=== PATIENT | female | born 1970 | race Caucasian/White ===

== ENCOUNTER 2016-02-18 15:57 | Emergency (ER) | payer OTHER ==
[~2016-02-18 15:57] MED LIST: /AUGM875TA; /LAMO10TA PO; /LAMO15TA PO; /QUET10TA PO; ABIL15TA PO; ABIL5TAB PO; ADDE5TAB5 PO; AMBI10TA PO; AMOX125C; DEPA500T; FLUO20CA8 PO; HYDR25TA6; KLON0.5T PO; KLON1TAB PO; LAMI1TAB7 PO; LAMI1TAB8 PO; LATU40TA PO; LISI10TA4 PO; LISI5TAB PO; METO50TA2 PO; NORV5TAB; PROZ20CA; PROZ20CA11 PO; PROZ40CA PO; QUET50TA2 PO; SEROQUEL PO; ZOLO25TA PO; cleocin TOP
[2016-02-18] MEDS ORDERED: predniSONE 20 MG TAB As Ordered ONE (16:54)
[2016-02-18] MEDS ORDERED: KETOROLAC 30 MG/ML VIAL (J1885) As Ordered ONE (16:54)
[2016-02-18] MEDS ORDERED: ACETAMINOPHEN 325 MG TAB As Ordered ONE (17:52)
--- NOTE | 2016-02-18 18:11 | EDDOCDS ---
Nurse's Notes [facility] Name: Shabnam Tinoco Age: 45 yrs Sex: Female : 1970 Arrival Date: 02/18/2016 Time: 15:57 Bed TR1 Private MD: Angela Theodore S Diagnosis: Cervicalgia-Acute;Low back pain-Acute Presentation: 02/17 15:59 Presenting complaint: Patient states: pt c/o left sided neck pain, headache, and lower ead back pain. reports hx of similar pain. also reporting recently helped a friend move heavy boxes and feels this triggered this episode. Risk Factors No acute neurological deficit is noted. Adult Sepsis Screening: The patient does not have new or worsening altered mentation. Patient's respiratory rate is less than 22. Systolic blood pressure is greater than 100. Patient has a qSOFA score of 0- Negative Sepsis Screen. Suicide/Homicide risk assessment- the patient denies having any suicidal and/or homicidal ideations and does not present with any other emotional, behavioral or mental health complaints. Status: Patient is not a guest services lead or dependent. Transition of care: patient was not received from another setting of care. 15:59 Acuity: LIZ Level 4 ead 15:59 Method Of Arrival: Walkin/Carried/Asstd ead Triage Assessment: 16:04 General: Appears in no apparent distress, Behavior is cooperative. Pain: Location: back ead of neck, back and scalp Pain currently is 9 out of 10 on a pain scale. HIV screening NA for this visit Offered previously. Neurological: Level of Consciousness is awake, alert, Oriented to person, place, time. Respiratory: Airway is patent Respiratory effort is even, unlabored. Musculoskeletal: Reports pain in back of head, back of neck and back. 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 Prozac 30mg Oral tab 1 cap once daily 2. lithium carbonate 450 mg oral TbER 2 times per day 3. Klonopin 0.5 mg Oral tab 1 tab 3 times per day for Panic Disorder 4. lisinopril-hydrochlorothiazide 20-12.5 mg oral tab 1 tab twice daily 5. trazodone 50 mg Oral tab 1 tab daily (Last dose: 02/18/2016) - PMHx: Anxiety; Depression; Bipolar disorder; Hypertension; - PSHx: Tubal ligation; - Social history: Smoking status: Patient states former smoker of tobacco. No barriers to communication noted, The patient speaks fluent Sinhala, Speaks appropriately for age. - Family history: Not pertinent. - : The pt / caregiver states he / she is not on anticoagulants. Home medication list is obtained from. - Exposure Risk Screening:: None identified. Screenin:59 Screening information is obtained from the patient. Fall risk: No risks identified. ttb Assistance ADL's: requires no assistance with activities of daily living. Abuse/DV Screen: The patient / caregiver reports he/she is: not in a situation that causes fear, pain or injury. Nutritional screening: No deficits noted. Advance Directives: Currently, there is no health care proxy. home support is adequate. Assessment: 16:59 General: Appears in no apparent distress, uncomfortable, well nourished, well groomed, ttb Behavior is appropriate for age, cooperative, pleasant. Pain: Location: neck and upper back. Neurological: Level of Consciousness is awake, alert, Oriented to person, place, time, Moves all extremities. Speech is normal, Facial symmetry appears normal. Neurological: Denies numbness. Cardiovascular: Chest pain is denied. Respiratory: No deficits noted. Airway is patent Denies cough, shortness of breath. GI: Denies nausea, vomiting, pain. Derm: Skin is normal. Musculoskeletal: Range of motion limited in neck d/t pain and stiffness. 17:57 Reassessment: Patient appears in no apparent distress at this time. pt states improved ttb pain after meds -- although now has headache. Meds given per orders. Pt requests medicaid cab. Secured per request.. Respiratory: No deficits noted. Airway is patent. Vital Signs: 15:58 BP 128 / 80; Pulse 80; Resp 18 S; Temp 98.5(O); Pulse Ox 100% on R/A; Weight 99.79 kg dd6 (R); Height 5 ft. 5 in. (165.10 cm) (R); 17:52 BP 125 / 85 RA Sitting (auto/lg); Pulse 70; Resp 18; Temp 96.5(O); Pulse Ox 98% on R/A; rs6 Pain 6/10; 15:58 Body Mass Index 36.61 (99.79 kg, 165.10 cm) dd6 Vitals: 15:58 Log In Time: February 18, 2016 at 15:56. dd6 ED Course: 15:58 Patient visited by Guicho Nina PCA. dd6 15:58 Angela Theodore is Private Physician. dd6 15:58 Patient moved to Waiting dd6 15:59 Patient moved to Pre RCE dd6 16:01 Triage Initiated ead 16:17 Patient moved to Triage 3 ead 16:38 Roseanna Valdes PA-C is PHCP. ef1 16:38 Audelia Leger MD is Attending Physician. ef1 16:38 Patient visited by Roseanna Valdes PA-C. ef1 16:53 Patient moved to PR2 / 26 rs6 16:59 The patient / caregiver is instructed regarding the plan of care and ED course. Patient ttb has correct armband on for positive identification. 17:13 Patient visited by Roseanna Valdes PA-C. ef1 17:25 [facility] [place] Payment Agreement was scanned into [employer] and attached to record. jpb 17:42 Patient visited by Roseanna Valdes PA-C. ef1 17:43 Angela Theodore is Referral Physician. ef1 17:[facility] ef1 17:52 Patient visited by Rebecca Ayala PCA. rs6 17:57 No IV's were initiated during this patient's visit. No procedures done that require ttb assistance. 18:03 Patient moved to TR1 mlb1 Administered Medications: 16:59 Drug: predniSONE 60 mg [prednisone 20 mg tablet (3 tabs)] Route: PO; ttb 16:59 Drug: ketorolac 60 mg [ketorolac 30 mg/mL (1 mL) injection solution (2 mL)] Route: IM; ttb Site: left gluteus; 17:58 Follow up: Response: No Adverse Reaction; Pain is decreased ttb 17:57 Drug: Acetaminophen 975 mg [acetaminophen 325 mg tablet (3 tabs)] Route: PO; ttb Order Results: There are currently no results for this order. Outcome: 17:43 Discharge ordered by Provider. ef1 17:57 Discharge Assessment: Patient awake, alert and oriented x 3. No cognitive and/or ttb functional deficits noted. Patient verbalized understanding of disposition instructions. Patient awake and alert. patient administered narcotics - no. The following High Risk Discharge criteria are identified: None. Discharged to home ambulatory. Condition: good Condition: stable Condition: improved. Discharge instructions given to patient, Instructed on discharge instructions, follow up and referral plans. medication usage, no driving heavy equipment, no drinking with medication, Demonstrated understanding of instructions, medications, no d/d with meds, ice/heat for relief Pt was receptive of discharge instructions/ teaching. Prescriptions given X 2. No special radiology studies were completed. Property :Personal belongings accompany Pt. 18:10 Patient left the ED. ttb Signatures: Mario Edmonds RN RN mlb1 Guicho Nina, FREIGHT ELEVATOR ERECTOR FREIGHT ELEVATOR ERECTOR dd6 Roseanna Valdes, PAFreemanC PA-C ef1 Abbe Whiting Teresa, RN RN ttb Dunaway, Emily, RN RN ead Schmitt, Rebecca, FREIGHT ELEVATOR ERECTOR FREIGHT ELEVATOR ERECTOR rs6 PAULA
--- NOTE | 2016-02-18 18:11 | EDDOCDS ---
Physician Documentation [facility] Name: Shabnam Tinoco Age: 45 yrs Sex: Female : 1970 Arrival Date: 02/18/2016 Time: 15:57 Bed TR1 Private MD: Angela Theodore S Disposition: 02/18/16 17:43 Discharged to Home/Self Care. Impression: Cervicalgia - Acute, Low back pain - Acute. - Condition is Stable. - Discharge Instructions: Back Pain, Adult, [id number], Soft Tissue Injury of the Neck, [id number]. - Prescriptions for Mobic 7.5 mg Oral Tablet - take 1 tablet by ORAL route once daily take with food; 20 tablet. Prednisone 20 mg Oral Tablet - take 3 tablet by ORAL route once daily for 5 days; 15 tablet. - Medication Reconciliation, Local Pharmacy Hours form. - Follow up: Angela Theodore; When: 1 - 2 days; Reason: Recheck today's complaints, Continuance of care. Follow up: Emergency Department; Reason: Worsening of conditions. Follow up: [facility]; When: Call to arrange an appointment; Reason: Further diagnostic work-up, Recheck today's complaints, Continuance of care. - Problem is new. - Symptoms have improved. Historical: - Allergies: no known allergies; - Home Meds: 1. Prozac 30mg Oral tab 1 cap once daily 2. lithium carbonate 450 mg oral TbER 2 times per day 3. Klonopin 0.5 mg Oral tab 1 tab 3 times per day for Panic Disorder 4. lisinopril-hydrochlorothiazide 20-12.5 mg oral tab 1 tab twice daily 5. trazodone 50 mg Oral tab 1 tab daily (Last dose: 02/18/2016) - PMHx: Anxiety; Depression; Bipolar disorder; Hypertension; - PSHx: Tubal ligation; - Social history: Smoking status: Patient states former smoker of tobacco. No barriers to communication noted, The patient speaks fluent Uzbek, Speaks appropriately for age. - Family history: Not pertinent. - : The pt / caregiver states he / she is not on anticoagulants. Home medication list is obtained from. - Exposure Risk Screening:: None identified. 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 5 in. (165.10 cm) (R); 17:52 BP 125 / 85 RA Sitting (auto/lg); Pulse 70; Resp 18; Temp 96.5(O); Pulse Ox 98% on R/A; rs6 Pain 6/10; 15:58 Body Mass Index 36.61 (99.79 kg, 165.10 cm) dd6 MDM: 16:52 predniSONE 60 mg PO once; administer with food or milk ordered. ef1 16:52 ketorolac 60 mg IM once ordered. ef1 17:25 [facility] Payment Agreement was scanned into [employer] and attached to record. jpb 17:26 Financial registration complete. jpb 17:50 Acetaminophen Tablet 975 mg PO once ordered. ef1 Administered Medications: 16:59 Drug: predniSONE 60 mg [prednisone 20 mg tablet (3 tabs)] Route: PO; ttb 16:59 Drug: ketorolac 60 mg [ketorolac 30 mg/mL (1 mL) injection solution (2 mL)] Route: IM; ttb Site: left gluteus; 17:58 Follow up: Response: No Adverse Reaction; Pain is decreased ttb 17:57 Drug: Acetaminophen 975 mg [acetaminophen 325 mg tablet (3 tabs)] Route: PO; ttb Signatures: Roseanna Valdes PA-C PA-C ef1 Abbe Whiting jpLiliana Haji RN RN ttb Hillary Hardwick RN RN ead The chart was reviewed and I authenticate all verbal orders and agree with the evaluation and treatment provided.Attachments: 17:25 [facility] Payment Agreement jpb MTDD
--- NOTE | 2016-02-20 19:11 | EDDOCDS ---
Physician Documentation [facility] Name: Shabnam Tinoco Age: 45 yrs Sex: Female : 1970 Arrival Date: 02/18/2016 Time: 15:57 Bed TR1 Private MD: Angela Theodore S Disposition: 02/18/16 17:43 Discharged to Home/Self Care. Impression: Cervicalgia - Acute, Low back pain - Acute. - Condition is Stable. - Discharge Instructions: Back Pain, Adult, Etmh-ay-Grid, Soft Tissue Injury of the Neck, Kwtl-bu-Uscd. - Prescriptions for Mobic 7.5 mg Oral Tablet - take 1 tablet by ORAL route once daily take with food; 20 tablet. Prednisone 20 mg Oral Tablet - take 3 tablet by ORAL route once daily for 5 days; 15 tablet. - Medication Reconciliation, Local Pharmacy Hours form. - Follow up: Angela Theodore; When: 1 - 2 days; Reason: Recheck today's complaints, Continuance of care. Follow up: Emergency Department; Reason: Worsening of conditions. Follow up: [facility]; When: Call to arrange an appointment; Reason: Further diagnostic work-up, Recheck today's complaints, Continuance of care. - Problem is new. - Symptoms have improved. Historical: - Allergies: no known allergies; - Home Meds: 1. Prozac 30mg Oral tab 1 cap once daily 2. lithium carbonate 450 mg oral TbER 2 times per day 3. Klonopin 0.5 mg Oral tab 1 tab 3 times per day for Panic Disorder 4. lisinopril-hydrochlorothiazide 20-12.5 mg oral tab 1 tab twice daily 5. trazodone 50 mg Oral tab 1 tab daily (Last dose: 02/18/2016) - PMHx: Anxiety; Depression; Bipolar disorder; Hypertension; - PSHx: Tubal ligation; - Social history: Smoking status: Patient states former smoker of tobacco. No barriers to communication noted, The patient speaks fluent Malay, Speaks appropriately for age. - Family history: Not pertinent. - : The pt / caregiver states he / she is not on anticoagulants. Home medication list is obtained from. - Exposure Risk Screening:: None identified. 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 5 in. (165.10 cm) (R); 17:52 BP 125 / 85 RA Sitting (auto/lg); Pulse 70; Resp 18; Temp 96.5(O); Pulse Ox 98% on R/A; rs6 Pain 6/10; 15:58 Body Mass Index 36.61 (99.79 kg, 165.10 cm) dd6 MDM: 16:52 predniSONE 60 mg PO once; administer with food or milk ordered. ef1 16:52 ketorolac 60 mg IM once ordered. ef1 17:25 [facility] Payment Agreement was scanned into [employer] and attached to record. jpb 17:26 Financial registration complete. jpb 17:50 Acetaminophen Tablet 975 mg PO once ordered. ef1 02/19 08:49 T-Sheet-- Draft Copy was scanned into [employer] and attached to record. gb Administered Medications: 02/17 16:59 Drug: predniSONE 60 mg [prednisone 20 mg tablet (3 tabs)] Route: PO; ttb 16:59 Drug: ketorolac 60 mg [ketorolac 30 mg/mL (1 mL) injection solution (2 mL)] Route: IM; ttb Site: left gluteus; 17:58 Follow up: Response: No Adverse Reaction; Pain is decreased ttb 17:57 Drug: Acetaminophen 975 mg [acetaminophen 325 mg tablet (3 tabs)] Route: PO; ttb Signatures: Rosa Latham, Roseanna Wooten PA-C PA-C ef1 Abbe Whiting jpLiliana Haji RN RN ttb Hillary Hardwick RN RN eagabrielle The chart was reviewed and I authenticate all verbal orders and agree with the evaluation and treatment provided.Attachments: 17:25 [facility] Payment Agreement [facility] 02/19 08:49 T-Sheet-- Draft Copy gb Chart Complete MTDD
--- NOTE | 2016-02-20 19:11 | EDDOCDS ---
Nurse's Notes [facility] Name: Shabnam Tinoco Age: 45 yrs Sex: Female : 1970 Arrival Date: 02/18/2016 Time: 15:57 Bed TR1 Private MD: Angela Theodore S Diagnosis: Cervicalgia-Acute;Low back pain-Acute Presentation: 02/17 15:59 Presenting complaint: Patient states: pt c/o left sided neck pain, headache, and lower ead back pain. reports hx of similar pain. also reporting recently helped a friend move heavy boxes and feels this triggered this episode. Risk Factors No acute neurological deficit is noted. Adult Sepsis Screening: The patient does not have new or worsening altered mentation. Patient's respiratory rate is less than 22. Systolic blood pressure is greater than 100. Patient has a qSOFA score of 0- Negative Sepsis Screen. Suicide/Homicide risk assessment- the patient denies having any suicidal and/or homicidal ideations and does not present with any other emotional, behavioral or mental health complaints. Status: Patient is not a service specialist or dependent. Transition of care: patient was not received from another setting of care. 15:59 Acuity: LIZ Level 4 ead 15:59 Method Of Arrival: Walkin/Carried/Asstd ead Triage Assessment: 16:04 General: Appears in no apparent distress, Behavior is cooperative. Pain: Location: back ead of neck, back and scalp Pain currently is 9 out of 10 on a pain scale. HIV screening NA for this visit Offered previously. Neurological: Level of Consciousness is awake, alert, Oriented to person, place, time. Respiratory: Airway is patent Respiratory effort is even, unlabored. Musculoskeletal: Reports pain in back of head, back of neck and back. 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 Prozac 30mg Oral tab 1 cap once daily 2. lithium carbonate 450 mg oral TbER 2 times per day 3. Klonopin 0.5 mg Oral tab 1 tab 3 times per day for Panic Disorder 4. lisinopril-hydrochlorothiazide 20-12.5 mg oral tab 1 tab twice daily 5. trazodone 50 mg Oral tab 1 tab daily (Last dose: 02/18/2016) - PMHx: Anxiety; Depression; Bipolar disorder; Hypertension; - PSHx: Tubal ligation; - Social history: Smoking status: Patient states former smoker of tobacco. No barriers to communication noted, The patient speaks fluent Welsh, Speaks appropriately for age. - Family history: Not pertinent. - : The pt / caregiver states he / she is not on anticoagulants. Home medication list is obtained from. - Exposure Risk Screening:: None identified. Screenin:59 Screening information is obtained from the patient. Fall risk: No risks identified. ttb Assistance ADL's: requires no assistance with activities of daily living. Abuse/DV Screen: The patient / caregiver reports he/she is: not in a situation that causes fear, pain or injury. Nutritional screening: No deficits noted. Advance Directives: Currently, there is no health care proxy. home support is adequate. Assessment: 16:59 General: Appears in no apparent distress, uncomfortable, well nourished, well groomed, ttb Behavior is appropriate for age, cooperative, pleasant. Pain: Location: neck and upper back. Neurological: Level of Consciousness is awake, alert, Oriented to person, place, time, Moves all extremities. Speech is normal, Facial symmetry appears normal. Neurological: Denies numbness. Cardiovascular: Chest pain is denied. Respiratory: No deficits noted. Airway is patent Denies cough, shortness of breath. GI: Denies nausea, vomiting, pain. Derm: Skin is normal. Musculoskeletal: Range of motion limited in neck d/t pain and stiffness. 17:57 Reassessment: Patient appears in no apparent distress at this time. pt states improved ttb pain after meds -- although now has headache. Meds given per orders. Pt requests medicaid cab. Secured per request.. Respiratory: No deficits noted. Airway is patent. Vital Signs: 15:58 BP 128 / 80; Pulse 80; Resp 18 S; Temp 98.5(O); Pulse Ox 100% on R/A; Weight 99.79 kg dd6 (R); Height 5 ft. 5 in. (165.10 cm) (R); 17:52 BP 125 / 85 RA Sitting (auto/lg); Pulse 70; Resp 18; Temp 96.5(O); Pulse Ox 98% on R/A; rs6 Pain 6/10; 15:58 Body Mass Index 36.61 (99.79 kg, 165.10 cm) dd6 Vitals: 15:58 Log In Time: February 18, 2016 at 15:56. dd6 ED Course: 15:58 Patient visited by Guicho Nina PCA. dd6 15:58 Angela Theodore is Private Physician. dd6 15:58 Patient moved to Waiting dd6 15:59 Patient moved to Pre RCE dd6 16:01 Triage Initiated ead 16:17 Patient moved to Triage 3 ead 16:38 Roseanna Valdes PA-C is PHCP. ef1 16:38 Audelia Leger MD is Attending Physician. ef1 16:38 Patient visited by Roseanna Valdes PA-C. ef1 16:53 Patient moved to PR2 / rs6 16:59 The patient / caregiver is instructed regarding the plan of care and ED course. Patient ttb has correct armband on for positive identification. 17:13 Patient visited by Roseanna Valdes PA-C. ef1 17:25 [facility] Agreement was scanned into [employer] and attached to record. jpb 17:42 Patient visited by Roseanna Valdes PA-C. ef1 17:43 Angela Theodore is Referral Physician. ef1 17:[facility]. ef1 17:52 Patient visited by Rebecca Ayala PCA. rs6 17:57 No IV's were initiated during this patient's visit. No procedures done that require ttb assistance. 18:03 Patient moved to [place] [id number] 02/19 08:49 T-Sheet-- Draft Copy was scanned into [employer] and attached to record. gb Administered Medications: 02/17 16:59 Drug: predniSONE 60 mg [prednisone 20 mg tablet (3 tabs)] Route: PO; ttb 16:59 Drug: ketorolac 60 mg [ketorolac 30 mg/mL (1 mL) injection solution (2 mL)] Route: IM; ttb Site: left gluteus; 17:58 Follow up: Response: No Adverse Reaction; Pain is decreased ttb 17:57 Drug: Acetaminophen 975 mg [acetaminophen 325 mg tablet (3 tabs)] Route: PO; ttb Order Results: There are currently no results for this order. Outcome: 17:43 Discharge ordered by Provider. ef1 17:57 Discharge Assessment: Patient awake, alert and oriented x 3. No cognitive and/or ttb functional deficits noted. Patient verbalized understanding of disposition instructions. Patient awake and alert. patient administered narcotics - no. The following High Risk Discharge criteria are identified: None. Discharged to home ambulatory. Condition: good Condition: stable Condition: improved. Discharge instructions given to patient, Instructed on discharge instructions, follow up and referral plans. medication usage, no driving heavy equipment, no drinking with medication, Demonstrated understanding of instructions, medications, no d/d with meds, ice/heat for relief Pt was receptive of discharge instructions/ teaching. Prescriptions given X 2. No special radiology studies were completed. Property :Personal belongings accompany Pt. 18:10 Patient left the ED. ttb Signatures: Rosa Latham, Reg Reg gb Mario Edmonds RN RN mlb1 Guicho Nina, NURSE RN BSN NURSE RN BSN dd6 Roseanna Valdes, PACruz PA-C ef1 Abbe Whiting Teresa RN RN ttb Hillary HardwickRN RN Rebecca Shannon, NURSE RN BSN NURSE RN BSN rs6 Chart Complete [facility]
--- NOTE | 2016-02-20 19:11 | EDDOCDS ---
Physician Documentation [facility] Name: Shabnam Tinoco Age: 45 yrs Sex: Female : 1970 Arrival Date: 02/18/2016 Time: 15:57 Bed TR1 Private MD: Angela Theodore S Disposition: 02/18/16 17:43 Discharged to Home/Self Care. Impression: Cervicalgia - Acute, Low back pain - Acute. - Condition is Stable. - Discharge Instructions: Back Pain, Adult, [id number], Soft Tissue Injury of the Neck, [id number]. - Prescriptions for Mobic 7.5 mg Oral Tablet - take 1 tablet by ORAL route once daily take with food; 20 tablet. Prednisone 20 mg Oral Tablet - take 3 tablet by ORAL route once daily for 5 days; 15 tablet. - Medication Reconciliation, Local Pharmacy Hours form. - Follow up: Angela Theodore; When: 1 - 2 days; Reason: Recheck today's complaints, Continuance of care. Follow up: Emergency Department; Reason: Worsening of conditions. Follow up: [facility]; When: Call to arrange an appointment; Reason: Further diagnostic work-up, Recheck today's complaints, Continuance of care. - Problem is new. - Symptoms have improved. Historical: - Allergies: no known allergies; - Home Meds: 1. Prozac 30mg Oral tab 1 cap once daily 2. lithium carbonate 450 mg oral TbER 2 times per day 3. Klonopin 0.5 mg Oral tab 1 tab 3 times per day for Panic Disorder 4. lisinopril-hydrochlorothiazide 20-12.5 mg oral tab 1 tab twice daily 5. trazodone 50 mg Oral tab 1 tab daily (Last dose: 02/18/2016) - PMHx: Anxiety; Depression; Bipolar disorder; Hypertension; - PSHx: Tubal ligation; - Social history: Smoking status: Patient states former smoker of tobacco. No barriers to communication noted, The patient speaks fluent Thai, Speaks appropriately for age. - Family history: Not pertinent. - : The pt / caregiver states he / she is not on anticoagulants. Home medication list is obtained from. - Exposure Risk Screening:: None identified. 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 5 in. (165.10 cm) (R); 17:52 BP 125 / 85 RA Sitting (auto/lg); Pulse 70; Resp 18; Temp 96.5(O); Pulse Ox 98% on R/A; rs6 Pain 6/10; 15:58 Body Mass Index 36.61 (99.79 kg, 165.10 cm) dd6 MDM: 16:52 predniSONE 60 mg PO once; administer with food or milk ordered. ef1 16:52 ketorolac 60 mg IM once ordered. ef1 17:25 [facility] Payment Agreement was scanned into [employer] and attached to record. jpb 17:26 Financial registration complete. jpb 17:50 Acetaminophen Tablet 975 mg PO once ordered. ef1 02/19 08:49 T-Sheet-- Draft Copy was scanned into [employer] and attached to record. gb Administered Medications: 02/17 16:59 Drug: predniSONE 60 mg [prednisone 20 mg tablet (3 tabs)] Route: PO; ttb 16:59 Drug: ketorolac 60 mg [ketorolac 30 mg/mL (1 mL) injection solution (2 mL)] Route: IM; ttb Site: left gluteus; 17:58 Follow up: Response: No Adverse Reaction; Pain is decreased ttb 17:57 Drug: Acetaminophen 975 mg [acetaminophen 325 mg tablet (3 tabs)] Route: PO; ttb Signatures: Rosa Latham, Roseanna Wooten PA-C PA-C ef1 Abbe Whiting jpLiliana Haji RN RN ttb Hillary Hardwick RN RN eagabrielle The chart was reviewed and I authenticate all verbal orders and agree with the evaluation and treatment provided.Attachments: 17:25 [facility] Payment Agreement the medical center 02/19 08:49 T-Sheet-- Draft Copy gb Chart Complete MTDD
== END 2016-02-18 18:10 | disposition home or self-care (01) ==
LOC: M ED 15:57
DX: M54.5 Low back pain (principal); M54.2 Cervicalgia; G89.29 Other chronic pain; I10 Essential (primary) hypertension; F31.9 Bipolar disorder, unspecified; F41.9 Anxiety disorder, unspecified; Z87.891 Personal history of nicotine dependence; Z79.899 Other long term (current) drug therapy
CPT/HCPCS: 96372; 99283; J1885

== ENCOUNTER → 2016-03-03 | Outpatient (CLI) | payer OTHER ==
--- NOTE | 2016-03-03 13:30 | REPMRS ---
Patient History The patient states she had a clinical breast exam in 03/02 Patient has history of other cancer at age 18. No known family history of cancer. Digital Woman Screen Mammo: March 03, 2016 - Exam #: [id number] Bilateral CC and MLO view(s) were taken. Technologist: Vickie Lovelace, Technologist Prior study comparison: January 17, 2015, digital woman screen mammo performed at [facility]. FINDINGS: There are scattered fibroglandular densities. There has been no change in the appearance of the mammogram from the prior studies. There is a mild amount of scattered fibroglandular density which is fairly symmetric. There is no interval development of dominant mass, architectural distortion, or clustered microcalcification suggestive of malignancy. ASSESSMENT: BI-RADS/ACR category 1 mammogram. Negative. Recommendation Routine screening mammogram in 1 year (for women over age 40). This mammogram was interpreted with the aid of an FDA-approved computer-aided dectection system. Electronically Signed By: Paolo Dempsey MD 03/03/16 [id number]
== END ==
LOC: M WHC 10:22
PROVIDERS: ATTEND Nurse Practitioner Family
DX: Z12.31 Encounter for screening mammogram for malignant neoplasm of breast (principal)

== ENCOUNTER 2016-06-12 12:33 | Emergency (ER) | payer OTHER ==
[~2016-06-12] VITALS: Ht 165.1 cm; Wt 86.2 kg
[2016-06-12 12:33] VITALS: BP 112/79
[2016-06-12] MEDS ORDERED: AMLO10TA PO (12:42)
[2016-06-12] MEDS ORDERED: LITH300C PO (12:42)
[2016-06-12] MEDS ORDERED: SERO50TA PO (12:42)
[2016-06-12] MEDS ORDERED: PROZ20CA11 PO (12:42)
[2016-06-12] MEDS ORDERED: PENI50TA PO (13:01)
[2016-06-12] MEDS ORDERED: VICO5TAB16 PO (13:04)
[2016-06-12] MEDS: PENICILLIN V POTASSIUM 500 MG TAB PO ONE (13:04)
[2016-06-12] MEDS: PERCOCET 5MG/325MG TAB PO ONE (13:05)
== END 2016-06-12 13:15 | disposition home or self-care (01) ==
LOC: M ED 12:58
DX: K08.9 Disorder of teeth and supporting structures, unspecified (principal); Z88.5 Allergy status to narcotic agent; Z79.899 Other long term (current) drug therapy; R51 Headache; I10 Essential (primary) hypertension; F41.9 Anxiety disorder, unspecified; F32.9 Major depressive disorder, single episode, unspecified

== ENCOUNTER 2016-06-16 09:32 | Emergency (ER) | payer OTHER ==
[~2016-06-16] VITALS: Ht 165.1 cm; Wt 86.2 kg
[~2016-06-16 09:32] MED LIST changes: +AMLO10TA PO; +LITH300C PO; +PENI50TA PO; +SERO50TA PO; +VICO5TAB16 PO
[2016-06-16 09:34] VITALS: BP 135/88
[2016-06-16] MEDS ORDERED: GABA-279 PO (09:42)
[2016-06-16] MEDS ORDERED: BUSP10TA PO (09:42)
[2016-06-16] MEDS ORDERED: BUPIVACAINE HCL 0.5% 10 ML VIAL SC ONE (10:00)
[2016-06-16] MEDS ORDERED: GABA-282 PO (10:03)
[2016-06-16] MEDS ORDERED: INDO25CA PO (10:03)
[2016-06-16] MEDS ORDERED: ROBA500T PO (10:03)
== END 2016-06-16 10:11 | disposition home or self-care (01) ==
LOC: M ED 09:51
DX: M54.2 Cervicalgia (principal); K02.9 Dental caries, unspecified; F17.200 Nicotine dependence, unspecified, uncomplicated; Z79.899 Other long term (current) drug therapy; Z88.5 Allergy status to narcotic agent

== ENCOUNTER → 2016-06-30 | Outpatient (REF) | payer OTHER ==
[~2016-06-30] MED LIST changes: +BUSP10TA PO; +GABA-279 PO; +GABA-282 PO; +INDO25CA PO; +ROBA500T PO
[2016-06-30 18:26] LABS: MEAN CORPUSCULAR HEMOGLOBIN 29.8 pg (27.0-33.0); MEAN CORPUSCULAR HGB CONC 33.1 g/dl (32.0-36.5); MEAN CORPUSCULAR VOLUME 89.9 fl (80.0-96.0); RED CELL DISTRIBUTION WIDTH 13.6 % (11.5-14.5); WHITE BLOOD COUNT 9.4 K/mm3 (4.0-10.0)
[2016-06-30 19:18] LABS: ALBUMIN/GLOBULIN RATIO 1.14 (1.00-1.93); ALKALINE PHOSPHATASE 38 U/L (45-117); ALT/SGPT 40 U/L (12-78); ANION GAP 9 MEQ/L (8-16); AST/SGOT 20 U/L (15-37); BILIRUBIN,TOTAL 0.3 MG/DL (0.2-1.0); BLOOD UREA NITROGEN 15 MG/DL (7-18); CALCIUM LEVEL 8.5 MG/DL (8.5-10.1); CARBON DIOXIDE LEVEL 24 MEQ/L (21-32); CHLORIDE LEVEL 108 MEQ/L (98-107); CHOLESTEROL LEVEL 210 MG/DL (<200); CREATININE FOR GFR 0.85 MG/DL (0.55-1.02); FREE T4 0.89 NG/DL (0.76-1.46); GLOMERULAR FILTRATION RATE > 60.0 (>58); GLUCOSE, FASTING 73 MG/DL (70-105); LITHIUM LEVEL 0.33 MEQ/L (0.60-1.20); POTASSIUM SERUM 4.4 MEQ/L (3.5-5.1); SODIUM LEVEL 141 MEQ/L (136-145); TOTAL PROTEIN 7.5 GM/DL (6.4-8.2); TRIGLYCERIDES LEVEL 243 MG/DL (<150)
== END ==
LOC: M SFHCLERA 14:26
PROVIDERS: ATTEND Family Medicine
DX: F31.30 Bipolar disorder, current episode depressed, mild or moderate severity, unspecified (principal)

== ENCOUNTER → 2016-06-30 | Outpatient (CLI) | payer OTHER ==
--- NOTE | 2016-06-30 15:26 | REP ---
Clinical: Pain. Technique: AP, lateral, flexion/extension, swimmer's, open-mouth, and bilateral oblique views. Comparison: 11/13/2014. Findings: Advanced multilevel degenerative changes include osteophytosis, endplate sclerosis/heterogeneity and disc space narrowing. Findings are most significant at the C5-6 and C4-5 levels. No acute fracture dislocation. Alignment and lordosis maintained. Open mouth view demonstrates normal C1-C2 articulation and odontoid process. Oblique views demonstrate patent neural foramen. Impression: Moderate to advanced multilevel degenerative changes most notably involving C5-6 and C4-5. No acute fracture or subluxation. Signed by Henrry Rosa MD 06/30/2016 03:18 P
== END ==
LOC: M LRY 14:32
PROVIDERS: ATTEND Family Medicine
DX: M50.90 Cervical disc disorder, unspecified, unspecified cervical region (principal)

== ENCOUNTER 2016-07-17 05:53 | Inpatient (IN) | payer OTHER ==
[~2016-07-17] VITALS: Ht 165.1 cm; Wt 99.8 kg
[2016-07-17] MEDS ORDERED: diphenhydrAMINE INJ 50MG/ML VIAL (J1200) IV STA (06:22)
[2016-07-17] MEDS ORDERED: FLUID PLACE HOLDER IV ONE ×2 (06:30)
[2016-07-17] MEDS ORDERED: MORPHINE 4 MG/ML 1ML SYRINGE IV ONE ×3 (06:30→09:30)
[2016-07-17] MEDS ORDERED: NAFCILLIN SOD IV ONE ×2 (06:30)
[2016-07-17 06:45] LABS: BASO % 0.5 % (0.0-1.0); EOS # 0.1 K/mm3 (0.0-0.50); LARGE UNSTAINED CELL # 0.1 K/mm3 (0.0-0.4); LARGE UNSTAINED CELL % 0.9 % (0.0-4.0); LYMPH # 2.2 K/mm3 (1.5-4.5); LYMPH % 17.3 % (24.0-44.0); MEAN CORPUSCULAR HEMOGLOBIN 29.4 pg (27.0-33.0); MEAN CORPUSCULAR HGB CONC 33.6 g/dl (32.0-36.5); MEAN CORPUSCULAR VOLUME 87.6 fl (80.0-96.0); MONO # 0.8 K/mm3 (0.0-0.8); NEUTROPHILS # 8.7 K/mm3 (1.8-7.7); NEUTROPHILS % 73.3 % (36.0-66.0); PLATELET COUNT, AUTOMATED 299 k/mm3 (150-450); RED CELL DISTRIBUTION WIDTH 13.5 % (11.5-14.5); WHITE BLOOD COUNT 11.8 K/mm3 (4.0-10.0)
[2016-07-17] MEDS ORDERED: NAFCILLIN SOD 2 GM in D5W MINI-BAG PLUS 100 ML IV ONE (06:45)
[2016-07-17 07:30] LABS: ANION GAP 6 MEQ/L (8-16); BLOOD UREA NITROGEN 9 MG/DL (7-18); CALCIUM LEVEL 8.2 MG/DL (8.5-10.1); CARBON DIOXIDE LEVEL 25 MEQ/L (21-32); CHLORIDE LEVEL 110 MEQ/L (98-107); CREATININE FOR GFR 0.66 MG/DL (0.55-1.02); GLOMERULAR FILTRATION RATE > 60.0 (>58); GLUCOSE, FASTING 106 MG/DL (70-105); POTASSIUM SERUM 4.4 MEQ/L (3.5-5.1); SODIUM LEVEL 141 MEQ/L (136-145)
--- NOTE | 2016-07-17 07:30 | REPUSA ---
HISTORY: Orbital cellulitis. TECHNIQUE: Computerized tomography of the orbits without the use of intravenous contrast material obt ained in axial and coronal planes. COMMENTS: Significant right preseptal soft tissue edema and swelling. There is no fracture or dislocation. The sinuses are patent. The globes of the eyes disclose bilaterally symmetrical size and shape and normal appearance of the v arious layers. The intraocular lenses and the vitreous are unremarkable. The orbits show bilaterally symmetrical shape. The orbital fat and the intraorbital portions of the optic nerves are bilaterally symmetric and normal in size, shape and course. The extraocular muscles are unremarkable. The intracranial visual pathways show no abnormality. The optic chiasm and visualized portions of the optic tracts are normal. IMPRESSION: Right preseptal soft tissue edema and swelling suggestive of cellulitis. No drainable abscess formati on. No post septal extension. Unremarkable contrast orbital fat. No fracture. Thank you for your kind referral of this patient.
[2016-07-17] MEDS ORDERED: ONDANSETRON 4MG/2ML VIAL (J2405) IV PRN (08:00)
[2016-07-17] MEDS ORDERED: BISACODYL 5 MG TAB PO PRN (08:00)
[2016-07-17] MEDS ORDERED: KETOROLAC 30 MG/ML VIAL (J1885) IV PRN (08:15)
[2016-07-17] MEDS ORDERED: LISI20TA3 PO (08:41)
[2016-07-17] MEDS ORDERED: LORA10TA2 PO (08:41)
[2016-07-17] MEDS ORDERED: ADVI200T PO (08:42)
[2016-07-17] MEDS ORDERED: amLODIPine 5 MG TAB PO SCH (09:00)
[2016-07-17] MEDS ORDERED: LISINOPRIL 10 MG TAB PO SCH (09:00)
[2016-07-17] MEDS ORDERED: FLUoxetine 10 MG CAP PO SCH (09:00)
[2016-07-17] MEDS: NS 1,000 ML IV SCH ×2 (09:12→17:59)
[2016-07-17] MEDS ORDERED: NALOXONE INJ 0.4 MG/1 ML VIAL (J2310) IV PRN (09:30)
[2016-07-17] MEDS ORDERED: VANCOMYCIN HCL 1,000 MG, VIAL MATE ADAPTER 1 EACH in D5W 250 ML IV ONE (10:00)
[2016-07-17] MEDS: cefTRIAXone SOD 2 GM in D5W MINI-BAG PLUS 50 ML IV SCH (11:00)
[2016-07-17] MEDS: LISINOPRIL 20 MG TAB PO SCH (11:08)
[2016-07-17] MEDS: hydroCHLOROthiazide 25 MG TAB PO SCH (11:08)
[2016-07-17] MEDS: busPIRone 10 MG TAB PO SCH ×3 (11:09→20:21)
[2016-07-17] MEDS: GABAPENTIN 300 MG CAP PO SCH ×3 (11:09→20:21)
[2016-07-17] MEDS: FLUoxetine 20 MG CAP PO SCH (11:09)
[2016-07-17] MEDS: LITHIUM CARBONATE 300 MG CAP PO SCH ×2 (11:09→20:22)
[2016-07-17] MEDS: ENOXAPARIN 40 MG/0.4 ML SYRINGE (J1650) SC SCH (11:10)
[2016-07-17] MEDS: KETOROLAC 30 MG/ML VIAL (J1885) IV SCH ×3 (11:11→20:21)
[2016-07-17 12:00] VITALS: BP 121/69
[2016-07-17] MEDS ORDERED: AMPICILLIN SOD/SULBACTAM SOD 3 GM in D5W MINI-BAG PLUS 100 ML IV SCH (12:00)
--- NOTE | 2016-07-17 13:36 | PHACANCOPD ---
PHARMACY VANCOMYCIN DOSING Pt Demographics Demographics Patient Age:45 , Weight:99.790 , Gender: female Adjusted Body Weight Date: 07/17/16, Adjusted Body Weight: [74] Kg Events Past 24 Hours Events Past 24 Hours: NO: Dialysis, Diuretic Therapy, Change in CrCl, Fever, Elevation in WBC, Pending Diagnostics, Pending Procedures, Other Vancomycin Vancomycin indication: h/o MRSA, preseptal cellulitis R eye Vancomycin Target Ranges: 10-20 mcg/ml Vancomycin Load Y/N: Yes Load Dose Date Time Vancomycin Load Dose: 1000mg Date: 07/17 Time: 13:00 Vancomycin Dose Date: 07/17/16. Current Vancomycin Dose: [1g IV q8h @16] Intermittent Dosing?: No Labs Labs Item Value Date Time White Blood Count 11.8 K/mm3 H 07/17/16 0636 Creatinine 0.66 MG/DL 07/17/16 0636 Micro Microbiology 07/17/16 Blood Culture, Received Pending Creatinine Clearance Date:07/17/16. Creatinine Clearance: [>100 ml/min]. Assessment and Plan Maintaining Current Dose?: Yes Reason for dose change: No Dose Change Pharmacist Note Pharmacist Note Date: 07/17/16. Pharmacist note: pt has been admitted for preseptal R eye cellulitis s/p pimple/insect bite. Pt does have a positive Hx of MRSA (2013 trunk, ESTEFANÍA = 1) although she has not been on vancomycin here in the past. I have started her on a 1g load (given ~13:00) and started 1g q8h dosing ~3 hours later. She is also on Rocephin. I will continue to monitor and order a trough as necessary. Raimundo Fonseca Pharm.D. Jul 17, 2016 13:36
[2016-07-17 14:00] VITALS: BP 128/61
[2016-07-17] MEDS: VANCOMYCIN HCL 1,000 MG, VIAL MATE ADAPTER 1 EACH in D5W 250 ML IV SCH (15:04)
[2016-07-17] MEDS: ACETAMINOPHEN TAB 650MG DOSE (2X325MG) PO PRN (16:40)
[2016-07-17] MEDS: QUEtiapine FUMARATE 50 MG TAB PO SCH (20:21)
[2016-07-17] MEDS ORDERED: GABAPENTIN 100 MG CAP PO SCH (21:00)
--- NOTE | 2016-07-17 21:20 | HPEPDOC ---
General Date of Admission Jul 17, 2016 at 08:04 Primary Care Physician: MORGAN LILLY MD Attending Physician: FRANSISCO LEVI MD Chief Complaint The patient is a 45-year-old female admitted with a reason for visit of Preseptal Cellulitis Of Right Eye. Source: Patient History of Present Illness PRIMARY CARE PROVIDER: Dr. Morgan Lilly CHIEF COMPLAINT: eye and facial swelling HISTORY OF PRESENT ILLNESS: 45 yo F with a PMH of HTN, anxiety, bipolar disorder, ADHD, and MRSA infection in 2013, is presenting to the [facility] ED for a chief complaint of swelling and redness of the R eye and face which began 2 days ago. This has progressively worsened. States that she first noticed a pimple or a "red dot" resembling an insect bite next to the R side of her eye. She began to pick on it and also used warm compresses on it. States she tried to keep the site clean and used neosporin and a bandaid on it. She also began to squeeze out dime-sized pus that was green/white/brown at times. She had done this multiple times last evening. This morning there was more drainage and she had squeezed out more pus and blood. States it was yesterday that the pain, pressure, warmth, and swelling actually started in her R eye and R cheek/face/neck. This morning, patient states she was unable to open her R eye due to the swelling and this had become worse. Swelling extended down to her R cheek and R neck glands. States the eye is very itchy. Pain was initially 9/10 when she came to the ED, a dose or morphine was given, and the pain is only reduced to a 7.5-8/10. Throbbing in nature. States she can feel pulsing in the eye, feels pressure in the edematous areas, and has formed a headache worse on the R frontal area and pain at the R ear. Moving her face exacerbates the pain as well. Warm compresses help alleviate some pain but not entirely. States she cannot open her jaw all the way. Denies fevers, dizziness, loss of consciousness, pain with eye movements, diplopia, visual loss/disturbance, drainage from the R eye itself, tearing or drainage coming from the R eye itself, vomiting, diarrhea, constipation, abdominal pain, numbness/tingling in extremities, urinary symptoms of dysuria or hematuria, hematochezia, weakness in her extremities. Admits to feeling hot/ cold on and off, some chills, diaphoresis, nausea, numbness around the R eye from being so swollen, pain and swelling in and around the R eye. In the ED, patient was given 4 mg injection of IV morphine sulfate, nafcillin 2000 mg IV once, diphenhydramine 12.5 mg IV, bloodwork was done, and a CT scan of the bilateral orbits without contrast was obtained. Please see results below. 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 No recurrence. SOCIAL HISTORY: Single. Lives at home with kitten. Has 2 children: 13 yo daughter and 23 yo son who lives in [place] Smokes 5-6 cigarettes per day x 3 years Denies heavy drinking. States has not drank in 7 months and has been going to [employer]. Denies heavy drinking in the past. Recreational drug use: smokes marijuana which helps her sleep. No other illicit drug use. Denies sick contacts. Denies recent travel. Denies occupational/other exposures to chemical/toxins, asbestos, silicosis, etc. FAMILY HISTORY: Mother: HTN, borderline diabetes, lymph node problems Father: Does not know. Older Brother: healthy and active. CODE STATUS: Full code REVIEW OF SYSTEMS: All ROS are negative except for those as stated above in HPI. PHYSICAL EXAMINATION: Vitals: T:98.3 BP: 135/87 RR:18 P:74 O2 Saturation: 97% room air General: AAO x 3. Pleasant and cooperative obese female. NAD. Psychiatric: Anxious mood/personality. HEENT: Head: normocephalic, atraumatic. Eyes: PERRL, sclera are nonicteric. EOMI intact bilaterally and no pain with movement of eye muscles. No proptosis. Visual acuity intact bilaterally. No redness in the R eye sclera. No drainage noted in the R eye. No crusting of the R eye eyelashes. Extremely swollen and slightly erythematous R eyelid. A bit warm to touch. There is a light brown crusted lesion next to her R eye--not actively draining. Ears: grossly normal hearing bilaterally. Swelling below R eye ear. +R cheek/facial swelling with induration palpated. Nose: No external lesions, Throat: no pharyngeal erythema or exudates, moist buccal mucosa. Neck: Supple. +R neck glandular swelling and R-sided lymphadenopathy. Respiratory: clear to auscultation bilaterally with no wheezes, rales, or rhonchi. Cardiovascular: regular rate and rhythm, with no murmurs, rubs or gallops. Abdomen: soft, nontender, nondistended, no hepatosplenomegaly appreciated. Bowel sounds present. Extremities: no swelling in either lower extremity bilaterally Neurological: No focal neurologic deficits appreciated. Lymphatics: +swollen lymph glands of R side of neck Integumentary: R eyelid/facial findings. Please see HEENT section. Vascular: +2 radial and dorsalis pedis pulses palpated bilaterally. LABORATORY DATA: Please see below for full labs. Significant for WBC 11.8, % neutrophilia of 73.3, lymphocytes of 17.3, and 7 monocytes, fasting glucose 106, calcium 8.2 MICROBIOLOGY: Blood cx are pending. ELECTROCARDIOGRAM: Not performed. RADIOLOGY: CT Orbit without contrast Bilateral: R preseptal soft tissue edema and swelling suggestive of cellulitis. No drainable abscess formation. No post septal extension. Unremarkable contrast orbital fat. No fracture. ASSESSMENT: This is a 45 yo F who is presenting for R eye preseptal cellulitis, R-sided facial/neck lymph gland swelling, and a R-sided brown crusted over lesion/wound site. . PLAN: Admit to the inpatient service. Preseptal Orbital Cellulitis and R-sided wound sit:e. Will treat with IV antibiotics: vancomycin and rocephin. Will obtain wound culture for gram stain and cx. Will follow up blood cx. Tylenol PRN pain/fever. Zofran for nausea. Pain control and edema: will give IV toradol 30 mg IV q6h with IV fluids. Once swelling and pain improved, will change toradol and IVF to PRN. For itchiness, will give benadryl. Due to past infection of MRSA in 2013, will send for MRSA screening. If MRSA screen is (-), will switch antibiotics to unasyn. HTN: continue lisinopril, amlodipine, HCTZ Bipolar Disorder: continue lithium and seroquel Anxiety: continue Prozac and buspirone. ADHD: continue seroquel (+) MRSA infection in past: place isolation precautions. Continue home medications. DVT ppx: lovenox My preceptor for this patient encounter was Dr. Fransisco Levi, and was physically present in the building during the encounter and was fully available. As needed, all aspects of the patient interview, examination, medical decision making process, and medical care plan development were reviewed and approved by the preceptor. Preceptor is aware and concurs with the plan as stated in the body of this note and will attest to such by his/her cosignature. Home Medications Scheduled (Lisinopril/Hydrochlorothi 20-25 mg) 1 Tab Tab, 1 TAB PO DAILY, (Reported) Amlodipine Besylate (Norvasc) 10 Mg Tab, 10 MG PO DAILY, (Reported) Buspirone HCl (Buspirone HCl) 10 Mg Tab, 10 MG PO TID, (Reported) Fluoxetine HCl (Prozac) 20 Mg Cap, 40 MG PO DAILY, (Reported) Gabapentin (Gabapentin) 300 Mg Cap, 300 MG PO TID [place] Carbonate ([place] Carbonate) 300 Mg Cap, 300 MG PO BID, (Reported) Loratadine (Loratadine) 10 Mg Tab, 10 MG PO DAILY, (Reported) Scheduled PRN Ibuprofen (Advil) 200 Mg Tab, 800 MG PO Q8H PRN for PAIN, (Reported) Quetiapine Fumerate (Seroquel) 50 Mg Tab, 50 MG PO QHS PRN for SLEEP, (Reported) Allergies Coded Allergies: Codeine (Verified Allergy, Mild, itchness, 06/12/16) Vital Signs Vital Signs Date Time Temp Pulse Resp B/P (MAP) Pulse Ox O2 Delivery O2 Flow Rate FiO2 07/17/16 14:00 97.2 77 18 128/61 (83) 96 Room Air Laboratory Data Labs 24H Laboratory Tests 2 07/17/16 06:36: White Blood Count 11.8H, Red Blood Count 4.10, Hemoglobin 12.1, Hematocrit 35.9L , Mean Corpuscular Volume 87.6, Mean Corpuscular Hemoglobin 29.4, Mean Corpuscular Hemoglobin Concent 33.6, Red Cell Distribution Width 13.5, Platelet Count 299, Neutrophils (%) (Auto) 73.3H, Lymphocytes (%) (Auto) 17.3L, Monocytes (%) (Auto) 7.0H, Eosinophils (%) (Auto) 1.0, Basophils (%) (Auto) 0.5 , Neutrophils # (Auto) 8.7H, Lymphocytes # (Auto) 2.2, Monocytes # (Auto) 0.8, Eosinophils # (Auto) 0.1, Basophils # (Auto) 0.0, Large Unclassified Cells % 0.9 , Large Unclassified Cells # 0.1, Anion Gap 6L, Glomerular Filtration Rate > 60.0, Blood Urea Nitrogen 9, Creatinine 0.66, Sodium Level 141, Potassium Level 4.4, Chloride Level 110H, Carbon Dioxide Level 25, Calcium Level 8.2L CBC/BMP Laboratory Tests 07/17/16 06:36 Red Blood Count 4.10, Mean Corpuscular Volume 87.6, Mean Corpuscular Hemoglobin 29.4, Mean Corpuscular Hemoglobin Concent 33.6, Red Cell Distribution Width 13.5 , Neutrophils (%) (Auto) 73.3 H, Lymphocytes (%) (Auto) 17.3 L, Monocytes (%) ( Auto) 7.0 H, Eosinophils (%) (Auto) 1.0, Basophils (%) (Auto) 0.5, Neutrophils # (Auto) 8.7 H, Lymphocytes # (Auto) 2.2, Monocytes # (Auto) 0.8, Eosinophils # (Auto) 0.1, Basophils # (Auto) 0.0, Calcium Level 8.2 L Microbiology Microbiology 07/17/16 Blood Culture, Received Pending 07/17/16 MRSA Screen, Received Pending 07/17/16 Gram Stain, Received Pending 07/17/16 Wound Culture, Received Pending Plan / VTE VTE Prophylaxis Ordered?: Yes (lovenox) RADHA KRISHNAN OGME-1 Jul 17, 2016 21:20
[2016-07-17 22:00] VITALS: BP 140/88
[2016-07-18] MEDS: VANCOMYCIN HCL 1,000 MG, VIAL MATE ADAPTER 1 EACH in D5W 250 ML IV SCH ×4 (00:12→19:24)
[2016-07-18] MEDS: ACETAMINOPHEN TAB 650MG DOSE (2X325MG) PO PRN ×2 (00:12→05:52)
[2016-07-18] MEDS: KETOROLAC 30 MG/ML VIAL (J1885) IV SCH ×4 (04:04→22:52)
[2016-07-18 06:00] VITALS: BP_SYST 158; BP_DIAS 84; BP_DIAS 88
[2016-07-18 06:05] LABS: MEAN CORPUSCULAR HGB CONC 33.9 g/dl (32.0-36.5); MEAN CORPUSCULAR VOLUME 88.5 fl (80.0-96.0); RED CELL DISTRIBUTION WIDTH 13.4 % (11.5-14.5); WHITE BLOOD COUNT 8.4 K/mm3 (4.0-10.0)
[2016-07-18 06:36] LABS: ALBUMIN 2.8 GM/DL (3.2-5.2); ANION GAP 6 MEQ/L (8-16); BLOOD UREA NITROGEN 7 MG/DL (7-18); CALCIUM LEVEL 8.1 MG/DL (8.5-10.1); CARBON DIOXIDE LEVEL 26 MEQ/L (21-32); CHLORIDE LEVEL 107 MEQ/L (98-107); CREATININE FOR GFR 0.57 MG/DL (0.55-1.02); GLOMERULAR FILTRATION RATE > 60.0 (>58); GLUCOSE, FASTING 93 MG/DL (70-105); PHOSPHORUS LEVEL 3.5 MG/DL (2.5-4.9); SODIUM LEVEL 139 MEQ/L (136-145)
[2016-07-18] MEDS ORDERED: NALOXONE INJ 0.4 MG/1 ML VIAL (J2310) IV PRN (07:45)
[2016-07-18] MEDS ORDERED: traMADol 50 MG TAB PO ONE (07:45)
[2016-07-18] MEDS ORDERED: MORPHINE 4 MG/ML 1ML SYRINGE IV ONE (07:45)
[2016-07-18] MEDS: busPIRone 10 MG TAB PO SCH ×3 (07:55→21:01)
[2016-07-18] MEDS: GABAPENTIN 300 MG CAP PO SCH ×3 (07:55→21:00)
[2016-07-18] MEDS: LISINOPRIL 20 MG TAB PO SCH (07:56)
[2016-07-18] MEDS: hydroCHLOROthiazide 25 MG TAB PO SCH (07:57)
[2016-07-18] MEDS: amLODIPine 10 MG TAB PO SCH (07:57)
[2016-07-18] MEDS: FLUoxetine 20 MG CAP PO SCH (07:57)
[2016-07-18] MEDS: LITHIUM CARBONATE 300 MG CAP PO SCH ×2 (07:57→21:03)
[2016-07-18] MEDS: MORPHINE 2 MG/ML 1ML SYRINGE IV PRN (07:59)
[2016-07-18] MEDS: ENOXAPARIN 40 MG/0.4 ML SYRINGE (J1650) SC SCH (08:00)
[2016-07-18] MEDS ORDERED: ANEXSIA, NORCO 7.5MG/325MG TABLET(HYDROCODONE/APAP) PO ONE (10:15)
[2016-07-18] MEDS ORDERED: ANEXSIA, NORCO 7.5MG/325MG TABLET(HYDROCODONE/APAP) PO PRN (10:15)
[2016-07-18] MEDS: NS 0.45% 1,000 ML IV SCH ×2 (10:30→23:00)
[2016-07-18] MEDS: ANEXSIA, NORCO 7.5MG/325MG TABLET(HYDROCODONE/APAP) PO PRN ×3 (11:30→21:02)
[2016-07-18] MEDS: cefTRIAXone SOD 2 GM in D5W MINI-BAG PLUS 50 ML IV SCH (11:52)
[2016-07-18] MEDS: **hydrALAZINE** 10 MG TAB PO SCH ×2 (11:54→16:45)
--- NOTE | 2016-07-18 12:23 | IPN ---
DATE: 07/18/2016 Patient seen and examined at the bedside. Chart has been reviewed. This morning, patient complains of severe pain on the right face with extension of the inflammation down towards the jaw. She has been placed on vancomycin and ceftriaxone. Denies any diplopia, decrease in vision. Able to move eyes. No fever. Pain is alleviated by Toradol and tramadol and IV morphine this morning. VITAL SIGNS: Temperature 98.2, pulse 67, respiratory rate 18, blood pressure 158/84, 97% on room air. Patient has significant induration, erythema, and swelling, warm to touch, on the right side of the face from above the eyelid all the way down to the right jaw, extended from yesterday. Patient's extraocular muscles are intact. Visual acuity is unchanged. Neck is supple. Full range of motion. Lungs are clear to auscultation. No wheezing, rales, or rhonchi. HEART: S1, S2, sinus rhythm. Abdomen is soft, nontender, nondistended. Positive bowel sounds. EXTREMITIES: No cyanosis, clubbing, or pitting edema. LAB DATA: White count 8.4, hemoglobin 11, hematocrit 35, platelet count 238, sedimentary rate 29, CRP 6.42, albumin of 2.8. Sodium 139, potassium 4, chloride 107, bicarbonate 26, BUN 7, creatinine 0.57, glucose of 93. MICROBIOLOGY: Face wound culture, staphylococcus aureus, moderate amount. Sensitivities not available. Methicillin-resistant Staphylococcus aureus (MRSA) screen pending. Blood culture, no growth after [address], right preseptal soft tissue edema and swelling suggestive of cellulitis. No drainable abscess collection. No post-septal extension. Unremarkable contrast orbital fat. No fracture. ASSESSMENT AND PLAN: This is a 45-year-old female history of hypertension, bipolar disorder, anxiety, attention deficit hyperactivity disorder (ADHD), methicillin-resistant Staphylococcus aureus (MRSA) infection 2013, (C) section, tubal ligation, right foot surgery, right shoulder tumor removal age 17 without chemoradiation with no recurrence with ALLERGY to TYLENOL WITH CODEINE causing pruritus, presents to emergency room with complaints of a pimple, dime sized, that she squeezed out with green/white/brown drainage with worsening swelling and extension to her right eye and face for 2 days. CURRENT ISSUES: 1. Preseptal cellulitis. Continue on vancomycin and ceftriaxone until methicillin-resistant Staphylococcus aureus (MRSA) screen is available. Once MRSA screen is negative, will determine sensitivity results on the microbiology. If sensitive to nafcillin or Unasyn, will de-escalate patient's antibiotics. For pain control, patient has hydrocodone/acetaminophen in the past with no issues, therefore, will provide one to two tablets as needed. IV morphine for severe breakthrough pain. Continue IV Toradol. Due to risk of renal failure with IV Toradol, diuretic, and angiotensin-converting enzyme (PRIYA) inhibitor, have discontinued the PRIYA inhibitor and diuretic for now. Allow the Toradol to work with IV fluids to prevent nephrotoxicity and to provide hydralazine for blood pressure control. 2. Hypertension. I have discontinued lisinopril and diuretic due to current use of Toradol which could precipitate nephrotoxicity. I provided IV fluids and hydralazine for blood pressure control, IV fluids to prevent nephrotoxicity from Toradol. 3. Bipolar disorder. Appears to be stable. Continue on home medications. 4. Deep venous thrombosis (DVT) prophylaxis with Lovenox.
[2016-07-18 14:00] VITALS: BP 139/90
--- NOTE | 2016-07-18 15:54 | PHACANCOPD ---
PHARMACY VANCOMYCIN DOSING Pt Demographics Demographics Patient Age:45 , Weight:99.790 , Gender: female Adjusted Body Weight Date: 07/17/16, Adjusted Body Weight: [74] Kg Events Past 24 Hours Events Past 24 Hours: NO: Dialysis, Diuretic Therapy, Change in CrCl, Fever, Elevation in WBC, Pending Diagnostics, Pending Procedures, Other Vancomycin Vancomycin indication: h/o MRSA, preseptal cellulitis R eye Vancomycin Target Ranges: 10-20 mcg/ml Vancomycin Load Y/N: Yes Load Dose Date Time Vancomycin Load Dose: 1000mg Date: 07/17 Time: 13:00 Vancomycin Dose Date: 07/18/16. Current Vancomycin Dose: [1500MG @ 1600 THEN 1 GRAM Q8H] Date: 07/17/16. Current Vancomycin Dose: [1g IV q8h @16] Intermittent Dosing?: No Labs Labs Item Value Date Time White Blood Count 11.8 K/mm3 H 07/17/16 0636 White Blood Count 8.4 K/mm3 07/18/16 0544 Creatinine 0.66 MG/DL 07/17/16 0636 Creatinine 0.57 MG/DL 07/18/16 0544 Vancomycin Level Trough 9.2 UG/ML L 07/18/16 1448 Micro Microbiology 07/17/16 Blood Culture - Preliminary, Resulted No growth after 24 hours . All specim... 07/17/16 MRSA Screen, Received Pending 07/17/16 Gram Stain - Final, Resulted 07/17/16 Wound Culture - Preliminary, Resulted Staphylococcus Aureus Creatinine Clearance Date:07/17/16. Creatinine Clearance: [>100 ml/min]. Assessment and Plan Maintaining Current Dose?: Yes Reason for dose change: No Dose Change Pharmacist Note Pharmacist Note Date: 07/18/16. Pharmacist note: Patients trough returned low (9.2) after a loading dose and 2 scheduled doses. An additional 500mg dose is scheduled to be given @ 1600 (total dose 1500mg). Trough should increase by another 20% once steady state is achieved. Continue current dosing and consider drawing another trough in a couple of days. Wound cultured staph aureus with ESTEFANÍA still pending. Continue to monitor renal function and adjust dose as needed. Date: 07/17/16. Pharmacist note: pt has been admitted for preseptal R eye cellulitis s/p pimple/insect bite. Pt does have a positive Hx of MRSA (2014 trunk, ESTEFANÍA = 1) although she has not been on vancomycin here in the past. I have started her on a 1g load (given ~13:00) and started 1g q8h dosing ~3 hours later. She is also on Rocephin. I will continue to monitor and order a trough as necessary. [facility] Jul 18, 2016 15:54
[2016-07-18] MEDS: VANCOMYCIN HCL 500 MG in D5W MINI-BAG PLUS 100 ML IV ONE ×2 (16:44→19:23)
[2016-07-18] MEDS: QUEtiapine FUMARATE 50 MG TAB PO SCH (21:03)
[2016-07-18 22:00] VITALS: BP 125/71
[2016-07-19] MEDS: VANCOMYCIN HCL 1,000 MG, VIAL MATE ADAPTER 1 EACH in D5W 250 ML IV SCH ×2 (02:45→10:42)
[2016-07-19] MEDS: KETOROLAC 30 MG/ML VIAL (J1885) IV SCH ×4 (04:00→21:15)
[2016-07-19 06:00] VITALS: BP 121/79
[2016-07-19] MEDS: **hydrALAZINE** 10 MG TAB PO SCH ×4 (06:00→17:18)
[2016-07-19 06:29] LABS: MEAN CORPUSCULAR HEMOGLOBIN 29.5 pg (27.0-33.0); MEAN CORPUSCULAR HGB CONC 33.5 g/dl (32.0-36.5); RED CELL DISTRIBUTION WIDTH 13.6 % (11.5-14.5); WHITE BLOOD COUNT 8.7 K/mm3 (4.0-10.0)
[2016-07-19] MEDS: ANEXSIA, NORCO 7.5MG/325MG TABLET(HYDROCODONE/APAP) PO PRN ×4 (06:37→19:37)
[2016-07-19 06:49] LABS: ALBUMIN 2.7 GM/DL (3.2-5.2); ANION GAP 4 MEQ/L (8-16); BLOOD UREA NITROGEN 6 MG/DL (7-18); CALCIUM LEVEL 7.9 MG/DL (8.5-10.1); CARBON DIOXIDE LEVEL 29 MEQ/L (21-32); CHLORIDE LEVEL 104 MEQ/L (98-107); CREATININE FOR GFR 0.69 MG/DL (0.55-1.02); GLOMERULAR FILTRATION RATE > 60.0 (>58); GLUCOSE, FASTING 88 MG/DL (70-105); PHOSPHORUS LEVEL 3.9 MG/DL (2.5-4.9); POTASSIUM SERUM 3.9 MEQ/L (3.5-5.1); SODIUM LEVEL 137 MEQ/L (136-145)
[2016-07-19] MEDS: ENOXAPARIN 40 MG/0.4 ML SYRINGE (J1650) SC SCH (08:52)
[2016-07-19] MEDS: MORPHINE 2 MG/ML 1ML SYRINGE IV PRN (08:53)
[2016-07-19] MEDS: busPIRone 10 MG TAB PO SCH ×3 (08:53→21:14)
[2016-07-19] MEDS: GABAPENTIN 300 MG CAP PO SCH ×3 (08:53→21:14)
[2016-07-19] MEDS: amLODIPine 10 MG TAB PO SCH (08:53)
[2016-07-19] MEDS: FLUoxetine 20 MG CAP PO SCH (08:53)
[2016-07-19] MEDS: LITHIUM CARBONATE 300 MG CAP PO SCH ×2 (08:54→21:13)
[2016-07-19] MEDS: cefTRIAXone SOD 2 GM in D5W MINI-BAG PLUS 50 ML IV SCH (10:41)
[2016-07-19] MEDS: NS 0.45% 1,000 ML IV SCH (10:44)
--- NOTE | 2016-07-19 13:14 | IPNPDOC ---
Text Note Date of Service The patient was seen on 07/19/16. NOTE Subjective: Shabnam Guerrier is a 45 year old female with a history of bipolar disorder, anxiety, hypertension, ADHD and prior MRSA infection in 2013 who presents to the hospitalist service with the chief complaint of right sided facial pain and swelling for 4 days duration. She states that a "red dot" appeared next to her right eye and that she squeezed some green/white/brown discharge out multiple times. Increasing redness, warmth, swelling and pain has spread from her initial lesion and includes her right cheek, eyelids and lips. She states that the pain is a pressure in quality, 9/10 at its maximum but currently mild in severity after receiving [place] 7.5/325 in the hospital. Borders were drawn and the redness has not spread outside the borders after initially receiving Nafcillin and then being switched to vancomycin and ceftriaxone. She has never had fever or chills. Complains of some subjective lymphadenopathy on the right side of the neck with some right ear and head pressure but denies any sore throat, runny nose, vision loss, hearing loss, or double vision. No nausea, vomiting, abdominal pain, chest pain, SOB, dizziness, fainting, swelling of the hands/feet, or changes in bowel/bladder habits. Also reports some sensitivity to light but no neck pain or back pain. She had no trouble sleeping last night. Denies any current anxiety, depression or suicidal ideation. REVIEW OF SYSTEMS: All ROS are negative except for those as stated above in HPI. PHYSICAL EXAMINATION: Vitals: T:98.8F BP: 121/76 RR:18 P:65 O2 Saturation: 98% room air General: AAO x 3. Pleasant and cooperative obese female. NAD. Psychiatric: Anxious mood/personality. HEENT: Head: normocephalic, atraumatic. Eyes: PERRL, sclera are nonicteric. EOMI intact bilaterally and no pain with movement of eye muscles. No proptosis. Visual acuity intact bilaterally. No photophobia to direct confrontation with penlight. No redness in the R eye sclera. No drainage noted in the R eye. No crusting of the R eye eyelashes. Extremely swollen and slightly erythematous R eyelid. A bit warm to touch. There is a light brown crusted lesion next to her R eye--not actively draining. Ears: grossly normal hearing bilaterally. Swelling below R eye ear. +R cheek/facial swelling with induration palpated. No palpable fluctuance. Nose: No external lesions, Throat: no pharyngeal erythema or exudates, moist buccal mucosa. Neck: Supple. +R neck glandular swelling and R-sided cervical lymphadenopathy. Fullness in the right supraclavicular area. Respiratory: clear to auscultation bilaterally with no wheezes, rales, or rhonchi. Cardiovascular: regular rate and rhythm, with no murmurs, rubs or gallops. Abdomen: soft, nontender, nondistended, no hepatosplenomegaly appreciated. Bowel sounds present. Extremities: no swelling in either lower extremity bilaterally Neurological: No focal neurologic deficits appreciated. Lymphatics: +swollen lymph glands of R side of neck Integumentary: R eyelid/facial findings. Please see HEENT section. Vascular: +2 radial and dorsalis pedis pulses palpated bilaterally. Psych: Pleasant affect but expresses feelings of concern and worry over her condition. LABORATORY DATA: Please see below for full labs. Significant for WBC 8.7 from 8.4 and 11.8 RBC 3.73 from 3.96 and 4.10 Hgb 11.0 from 11.9 Hct 32.8 from 35.1 fasting glucose 88 from 106 calcium 7.9 from 8.1 and 8.2 albumin 2.7 from 2.8 Vancomycin trough drawn yesterday was low at 9.2 C-Reactive protein drawn yesterday was high at 6.42 MICROBIOLOGY: Blood cx are negative after 48 hours. Wound culture is positive for MSSA MRSA assay is negative ELECTROCARDIOGRAM: Not performed. RADIOLOGY: CT Orbit without contrast Bilateral: R preseptal soft tissue edema and swelling suggestive of cellulitis. No drainable abscess formation. No post septal extension. Unremarkable contrast orbital fat. No fracture. ASSESSMENT: This is a 45 yo F who is presenting for R eye preseptal cellulitis, R-sided facial/neck lymph gland swelling, and a R-sided brown crusted over lesion/wound site. No evidence of ocular involvement. PLAN: Preseptal Orbital Cellulitis and R-sided wound site with presumed penicillinase- sable penicillin sensitive Staph Aureus. MRSA negative. Switched antibiotics from Vancomycin and ceftriaxone to Nafcillin. Continue Tylenol/hydrocodone PRN pain/fever. Zofran for nausea. Pain control and edema: will give IV toradol 30 mg IV q6h with IV fluids. Once swelling and pain improved, will change toradol and IVF to PRN. For itchiness, will give Benadryl. HTN: hold lisinopril, amlodipine, HCTZ and manage BP with hydralazine Bipolar Disorder: continue lithium and seroquel Anxiety: continue Prozac and buspirone. ADHD: continue seroquel (+) MRSA infection in past: place isolation precautions. Continue home medications. DVT ppx: lovenox My preceptor for this patient encounter was physically present in the building during the encounter and was fully available. As needed, all aspects of the patient interview, examination, medical decision making process, and medical care plan development were reviewed and approved by the preceptor. Preceptor is aware and concurs with the plan as stated in the body of this note and will attest to such by his/her cosignature VS,Maddy, I+O VSMaddy, I+O Laboratory Tests 07/19/16 06:12 Red Blood Count 3.73 L, Mean Corpuscular Volume 88.0, Mean Corpuscular Hemoglobin 29.5, Mean Corpuscular Hemoglobin Concent 33.5, Red Cell Distribution Width 13.6, Anion Gap 4 L Vital Signs Date Time Temp Pulse Resp B/P (MAP) Pulse Ox O2 Delivery O2 Flow Rate FiO2 07/19/16 11:13 18 07/19/16 08:53 65 121/76 07/19/16 06:00 98.8 98 Room Air I&O- Last 24 Hours up to 6 AM 07/19/16 06:00 Intake Total 3290 ml Balance 3290 ml RADHA KRISHNAN OGME-1 Jul 19, 2016 13:13
[2016-07-19] MEDS: NAFCILLIN SOD 2 GM in D5W MINI-BAG PLUS 100 ML IV SCH ×2 (13:56→17:19)
[2016-07-19 14:00] VITALS: BP 128/92
--- NOTE | 2016-07-19 15:26 | NOCOX ---
DATE OF PROCEDURE: 07/18/2016 INTERPRETATION: The study was initiated on room air. Resting oxygen saturation was 95%. Resting heart rate was 71. Heart rate ranged from 53-94, oxygen saturation ranged 77-99%. The longest continuous time with an oxygen saturation less than 88% was 52 seconds. However, the total time with an oxygen saturation less than 88% was 4 minutes and 8 seconds. There was variable desaturation throughout the evening corresponding with heart rate variability. IMPRESSION Variable desaturation concerning for possible obstructive sleep apnea. Consider referral for formal polysomnogram.
[2016-07-19] MEDS: QUEtiapine FUMARATE 50 MG TAB PO SCH (21:14)
[2016-07-19 22:00] VITALS: BP 153/95
[2016-07-20] VITALS: BP 106/56
[2016-07-20] MEDS: NAFCILLIN SOD 2 GM in D5W MINI-BAG PLUS 100 ML IV SCH ×4 (00:28→18:32)
[2016-07-20] MEDS: KETOROLAC 30 MG/ML VIAL (J1885) IV SCH ×4 (04:04→21:22)
[2016-07-20] MEDS: ANEXSIA, NORCO 7.5MG/325MG TABLET(HYDROCODONE/APAP) PO PRN ×4 (04:19→18:32)
[2016-07-20] MEDS: MORPHINE 2 MG/ML 1ML SYRINGE IV PRN ×3 (05:43→21:23)
[2016-07-20 06:00] VITALS: BP 129/82
[2016-07-20] MEDS: **hydrALAZINE** 10 MG TAB PO SCH ×4 (06:00→18:31)
[2016-07-20 06:48] LABS: MEAN CORPUSCULAR HEMOGLOBIN 29.4 pg (27.0-33.0); MEAN CORPUSCULAR HGB CONC 33.1 g/dl (32.0-36.5); MEAN CORPUSCULAR VOLUME 88.8 fl (80.0-96.0); RED CELL DISTRIBUTION WIDTH 13.6 % (11.5-14.5); WHITE BLOOD COUNT 7.9 K/mm3 (4.0-10.0)
[2016-07-20 07:01] LABS: ALBUMIN 2.9 GM/DL (3.2-5.2); ANION GAP 4 MEQ/L (8-16); BLOOD UREA NITROGEN 7 MG/DL (7-18); CARBON DIOXIDE LEVEL 28 MEQ/L (21-32); CHLORIDE LEVEL 106 MEQ/L (98-107); CREATININE FOR GFR 0.63 MG/DL (0.55-1.02); GLOMERULAR FILTRATION RATE > 60.0 (>58); GLUCOSE, FASTING 107 MG/DL (70-105); PHOSPHORUS LEVEL 3.7 MG/DL (2.5-4.9); POTASSIUM SERUM 4.2 MEQ/L (3.5-5.1); SODIUM LEVEL 138 MEQ/L (136-145)
[2016-07-20] MEDS: busPIRone 10 MG TAB PO SCH ×3 (08:28→21:23)
[2016-07-20] MEDS: FLUoxetine 20 MG CAP PO SCH (08:28)
[2016-07-20] MEDS: LITHIUM CARBONATE 300 MG CAP PO SCH ×2 (08:29→21:23)
[2016-07-20] MEDS: amLODIPine 10 MG TAB PO SCH (08:29)
[2016-07-20] MEDS: GABAPENTIN 300 MG CAP PO SCH ×3 (08:29→21:24)
[2016-07-20] MEDS: ENOXAPARIN 40 MG/0.4 ML SYRINGE (J1650) SC SCH (08:30)
--- NOTE | 2016-07-20 09:36 | IPNPDOC ---
Text Note Date of Service The patient was seen on 07/20/16. NOTE Subjective: Shabnam Guerrier is a 45 year old female with a history of bipolar disorder, anxiety, hypertension, ADHD and prior MRSA infection in 2013 who was admitted 3 days ago for right preseptal cellulitis. Wound culture came back positive for MSSA, negative for MRSA and she was switched from vancomycin and ceftriaxone to Nafcillin Patient currently rates her pain as 7.5 to 8/10 in severity. Still constant x5 days, described as a pressure in quality and radiates to the front of her head. It improves with [place] 7.5/325 and is worse with palpation. She is able to express brown/blood-tinged pus when pushing on the right side of her face. She noticed that she was able to express a firm, off white to eggshell colored collection of pus yesterday which she described as the "heart" of her infection and seemed to be improving after that. Reports some subjective hot flashes but denies chills, rigors or documented fever. Still some subjective lymphadenopathy on the right side of the neck and ear. Still no sore throat, runny nose, vision loss, hearing loss, or double vision. No nausea, vomiting, abdominal pain, chest pain, SOB, dizziness, fainting, swelling of the hands/feet , or changes in bowel/bladder habits. REVIEW OF SYSTEMS: All ROS are negative except for those as stated above in HPI. PHYSICAL EXAMINATION: Vitals: T:97.7F BP: 129/82 RR:18 P:76 O2 Saturation: 95% room air General: AAO x 3. Pleasant and cooperative obese female. NAD. Psychiatric: Anxious mood/personality. HEENT: Head: normocephalic, atraumatic. Eyes: PERRL, sclera are nonicteric. EOMI intact bilaterally and no pain with movement of eye muscles. No proptosis. Visual acuity intact bilaterally. No photophobia to direct confrontation with penlight. No redness in the R eye sclera. No drainage noted in the R eye. No crusting of the R eye eyelashes. swollen and slightly erythematous R eyelid, but decreased since yesterday. A bit warm to touch. There is a light brown crusted lesion next to her R eye--not actively draining. Ears: grossly normal hearing bilaterally. Swelling below R eye ear. +R cheek/facial swelling with induration palpated. No palpable fluctuance. Nose: No external lesions, Throat: no pharyngeal erythema or exudates, moist buccal mucosa. Neck: Supple. +R neck glandular swelling and R-sided cervical lymphadenopathy. Respiratory: clear to auscultation bilaterally with no wheezes, rales, or rhonchi. Cardiovascular: regular rate and rhythm, with no murmurs, rubs or gallops. Abdomen: soft, nontender, nondistended, no hepatosplenomegaly appreciated. Bowel sounds present. Extremities: no swelling in either lower extremity bilaterally Neurological: No focal neurologic deficits appreciated. Lymphatics: +swollen lymph glands of R side of neck Integumentary: R eyelid/facial findings. Please see HEENT section. Vascular: +2 radial and dorsalis pedis pulses palpated bilaterally. Psych: Appropriate mood and affect. Smiles during interview. LABORATORY DATA: Please see below for full labs. WBC 7.9 RBC 3.77 from 3.73 and 3.96 Hgb 11.1 from 11.0 and 11.9 Hct 33.5 from 32.8 and 35.1 fasting glucose 107 from 88 and 93 calcium 8.0 from 7.9 and 8.1 albumin 2.9 from 2.7 and 2.8 MICROBIOLOGY: Blood cx are negative after 72 hours. Wound culture is positive for MSSA MRSA assay is negative ELECTROCARDIOGRAM: Not performed. RADIOLOGY: CT Orbit without contrast Bilateral: R preseptal soft tissue edema and swelling suggestive of cellulitis. No drainable abscess formation. No post septal extension. Unremarkable contrast orbital fat. No fracture. ASSESSMENT: This is a 45 yo F who is presenting for R eye preseptal cellulitis, R-sided facial/neck lymph gland swelling, and a R-sided brown crusted over lesion/wound site. No evidence of ocular involvement. PLAN: Preseptal Orbital Cellulitis and R-sided wound site with presumed penicillinase- sable penicillin sensitive Staph Aureus. MRSA negative. Switched antibiotics from Vancomycin and ceftriaxone to Nafcillin. Eye swelling is much improved from prior. Continue pain medications PRN. Zofran for nausea. Continue warm compresses. Counseled patient to stop picking at her eye and wound area. Pain control and edema: will give IV toradol 30 mg IV q6h with IV fluids. Once swelling and pain improved, will change toradol and IVF to PRN. For itchiness, will give Benadryl. HTN: hold lisinopril due to giving IV toradol and risk of interstitial nephritis. Continue amlodipine, HCTZ and manage BP with hydralazine Bipolar Disorder: continue lithium and seroquel Anxiety: continue Prozac and buspirone. ADHD: continue seroquel (+) MRSA infection in past: place isolation precautions. Continue home medications. DVT ppx: lovenox My preceptor for this patient encounter was Dr. Kevin Diaz, and was physically present in the building during the encounter and was fully available. As needed, all aspects of the patient interview, examination, medical decision making process, and medical care plan development were reviewed and approved by the preceptor. Preceptor is aware and concurs with the plan as stated in the body of this note and will attest to such by his/her cosignature. Attending Note: I have independently examined this patient and all aspects of the exam and treatment decisions have been discussed with the resident. A member of the hospitalist staff will continue to follow this patient through discharge. VS,Fishbone, I+O VS, Fishbone, I+O Laboratory Tests 07/20/16 06:31 Red Blood Count 3.77 L, Mean Corpuscular Volume 88.8, Mean Corpuscular Hemoglobin 29.4, Mean Corpuscular Hemoglobin Concent 33.1, Red Cell Distribution Width 13.6, Anion Gap 4 L Vital Signs Date Time Temp Pulse Resp B/P (MAP) Pulse Ox O2 Delivery O2 Flow Rate FiO2 07/20/16 09:00 16 07/20/16 08:29 76 129/82 07/20/16 06:00 97.7 95 Room Air I&O- Last 24 Hours up to 6 AM 07/20/16 06:00 Intake Total 1200 ml Output Total 900 ml Balance 300 ml RADHA KRISHNAN OGME-1 Jul 20, 2016 09:36 KEVIN DIAZ DO Jul 21, 2016 15:33
[2016-07-20 14:00] VITALS: BP 119/69
--- NOTE | 2016-07-20 19:48 | IPNPDOC ---
Text Note Date of Service The patient was seen on 07/20/16. NOTE Subjective: Shabnam Guerrier is a 45 year old female with a history of bipolar disorder, anxiety, hypertension, ADHD and prior MRSA infection in 2013 who was admitted 3 days ago for right preseptal cellulitis. Wound culture came back positive for MSSA, negative for MRSA and she was switched from vancomycin and ceftriaxone to Nafcillin Patient currently rates her pain as 7.5 to 8/10 in severity. Still constant x5 days, described as a pressure in quality and radiates to the front of her head. It improves with [place] 7.5/325 and is worse with palpation. She is able to express brown/blood-tinged pus when pushing on the right side of her face. She noticed that she was able to express a firm, off white to eggshell colored collection of pus yesterday which she described as the "heart" of her infection and seemed to be improving after that. Reports some subjective hot flashes but denies chills, rigors or documented fever. Still some subjective lymphadenopathy on the right side of the neck and ear. Still no sore throat, runny nose, vision loss, hearing loss, or double vision. No nausea, vomiting, abdominal pain, chest pain, SOB, dizziness, fainting, swelling of the hands/feet , or changes in bowel/bladder habits. REVIEW OF SYSTEMS: All ROS are negative except for those as stated above in HPI. PHYSICAL EXAMINATION: Vitals: T:97.7F BP: 129/82 RR:18 P:76 O2 Saturation: 95% room air General: AAO x 3. Pleasant and cooperative obese female. NAD. Psychiatric: Anxious mood/personality. HEENT: Head: normocephalic, atraumatic. Eyes: PERRL, sclera are nonicteric. EOMI intact bilaterally and no pain with movement of eye muscles. No proptosis. Visual acuity intact bilaterally. No photophobia to direct confrontation with penlight. No redness in the R eye sclera. No drainage noted in the R eye. No crusting of the R eye eyelashes. swollen and slightly erythematous R eyelid, but decreased since yesterday. A bit warm to touch. There is a light brown crusted lesion next to her R eye--not actively draining. Ears: grossly normal hearing bilaterally. Swelling below R eye ear. +R cheek/facial swelling with induration palpated. No palpable fluctuance. Nose: No external lesions, Throat: no pharyngeal erythema or exudates, moist buccal mucosa. Neck: Supple. +R neck glandular swelling and R-sided cervical lymphadenopathy. Respiratory: clear to auscultation bilaterally with no wheezes, rales, or rhonchi. Cardiovascular: regular rate and rhythm, with no murmurs, rubs or gallops. Abdomen: soft, nontender, nondistended, no hepatosplenomegaly appreciated. Bowel sounds present. Extremities: no swelling in either lower extremity bilaterally Neurological: No focal neurologic deficits appreciated. Lymphatics: +swollen lymph glands of R side of neck Integumentary: R eyelid/facial findings. Please see HEENT section. Vascular: +2 radial and dorsalis pedis pulses palpated bilaterally. Psych: Appropriate mood and affect. Smiles during interview. LABORATORY DATA: Please see below for full labs. WBC 7.9 RBC 3.77 from 3.73 and 3.96 Hgb 11.1 from 11.0 and 11.9 Hct 33.5 from 32.8 and 35.1 fasting glucose 107 from 88 and 93 calcium 8.0 from 7.9 and 8.1 albumin 2.9 from 2.7 and 2.8 MICROBIOLOGY: Blood cx are negative after 72 hours. Wound culture is positive for MSSA MRSA assay is negative ELECTROCARDIOGRAM: Not performed. RADIOLOGY: CT Orbit without contrast Bilateral: R preseptal soft tissue edema and swelling suggestive of cellulitis. No drainable abscess formation. No post septal extension. Unremarkable contrast orbital fat. No fracture. ASSESSMENT: This is a 45 yo F who is presenting for R eye preseptal cellulitis, R-sided facial/neck lymph gland swelling, and a R-sided brown crusted over lesion/wound site. No evidence of ocular involvement. PLAN: Preseptal Orbital Cellulitis and R-sided wound site with presumed penicillinase- sable penicillin sensitive Staph Aureus. MRSA negative. Switched antibiotics from Vancomycin and ceftriaxone to Nafcillin. Continue Tylenol/hydrocodone PRN pain/fever. Zofran for nausea. Pain control and edema: will give IV toradol 30 mg IV q6h with IV fluids. Once swelling and pain improved, will change toradol and IVF to PRN. For itchiness, will give Benadryl. HTN: hold lisinopril, amlodipine, HCTZ and manage BP with hydralazine Bipolar Disorder: continue lithium and seroquel Anxiety: continue Prozac and buspirone. ADHD: continue seroquel (+) MRSA infection in past: place isolation precautions. Continue home medications. DVT ppx: lovenox My preceptor for this patient encounter was physically present in the building during the encounter and was fully available. As needed, all aspects of the patient interview, examination, medical decision making process, and medical care plan development were reviewed and approved by the preceptor. Preceptor is aware and concurs with the plan as stated in the body of this note and will attest to such by his/her cosignature VSMaddy, I+O VSMaddy, I+O Laboratory Tests 07/20/16 06:31 Red Blood Count 3.77 L, Mean Corpuscular Volume 88.8, Mean Corpuscular Hemoglobin 29.4, Mean Corpuscular Hemoglobin Concent 33.1, Red Cell Distribution Width 13.6, Anion Gap 4 L Vital Signs Date Time Temp Pulse Resp B/P (MAP) Pulse Ox O2 Delivery O2 Flow Rate FiO2 07/20/16 19:45 Room Air 07/20/16 19:02 16 07/20/16 18:31 135/73 07/20/16 14:00 98.4 72 93 I&O- Last 24 Hours up to 6 AM 07/20/16 06:00 Intake Total 1200 ml Output Total 900 ml Balance 300 ml RADHA KRISHNAN OGME-1 Jul 20, 2016 19:48
[2016-07-20] MEDS: QUEtiapine FUMARATE 50 MG TAB PO SCH (21:23)
[2016-07-20 22:00] VITALS: BP 160/88
[2016-07-21] MEDS: **hydrALAZINE** 10 MG TAB PO SCH ×3 (00:48→11:51)
[2016-07-21] MEDS: NAFCILLIN SOD 2 GM in D5W MINI-BAG PLUS 100 ML IV SCH ×3 (00:48→11:28)
[2016-07-21] MEDS: KETOROLAC 30 MG/ML VIAL (J1885) IV SCH ×2 (03:46→11:16)
[2016-07-21 06:00] VITALS: BP 166/101
[2016-07-21 07:17] LABS: MEAN CORPUSCULAR HEMOGLOBIN 29.6 pg (27.0-33.0); MEAN CORPUSCULAR HGB CONC 33.8 g/dl (32.0-36.5); MEAN CORPUSCULAR VOLUME 87.4 fl (80.0-96.0); RED CELL DISTRIBUTION WIDTH 13.6 % (11.5-14.5); WHITE BLOOD COUNT 7.4 K/mm3 (4.0-10.0)
[2016-07-21 07:36] LABS: ALBUMIN 3.1 GM/DL (3.2-5.2); ANION GAP 4 MEQ/L (8-16); BLOOD UREA NITROGEN 6 MG/DL (7-18); CALCIUM LEVEL 8.9 MG/DL (8.5-10.1); CARBON DIOXIDE LEVEL 27 MEQ/L (21-32); CHLORIDE LEVEL 105 MEQ/L (98-107); GLOMERULAR FILTRATION RATE > 60.0 (>58); GLUCOSE, FASTING 97 MG/DL (70-105); POTASSIUM SERUM 4.4 MEQ/L (3.5-5.1); SODIUM LEVEL 136 MEQ/L (136-145)
[2016-07-21] MEDS: ENOXAPARIN 40 MG/0.4 ML SYRINGE (J1650) SC SCH (08:56)
[2016-07-21] MEDS: GABAPENTIN 300 MG CAP PO SCH (08:57)
[2016-07-21] MEDS: busPIRone 10 MG TAB PO SCH (08:57)
[2016-07-21] MEDS: LITHIUM CARBONATE 300 MG CAP PO SCH (08:57)
[2016-07-21] MEDS: amLODIPine 10 MG TAB PO SCH (08:57)
[2016-07-21] MEDS: FLUoxetine 20 MG CAP PO SCH (08:57)
[2016-07-21] MEDS: ANEXSIA, NORCO 7.5MG/325MG TABLET(HYDROCODONE/APAP) PO PRN (09:00)
[2016-07-21] MEDS ORDERED: IBUP600T26 PO (11:13)
[2016-07-21] MEDS ORDERED: DOXY-278 PO (11:13)
[2016-07-21] MEDS ORDERED: NORC7.5T PO (11:13)
[2016-07-21 11:51] VITALS: BP 136/95
--- NOTE | 2016-07-21 22:41 | DS.PDOC ---
Discharge Summary General Date of Admission Jul 17, 2016 at 08:04 Discharge Summary PROCEDURES PERFORMED DURING STAY: [None]. ADMITTING DIAGNOSES: 1. . 2. . 3. . DISCHARGE DIAGNOSES: 1. . 2. . 3. . COMPLICATIONS/CHIEF COMPLAINT: Preseptal Cellulitis Of Right Eye. HISTORY OF PRESENT ILLNESS: . HOSPITAL COURSE: . DISCHARGE MEDICATIONS: Please see below. ALLERGIES: Please see below. PHYSICAL EXAMINATION ON DISCHARGE: VITAL SIGNS: Please see below. GENERAL: HEENT: NECK: CARDIOVASCULAR EXAMINATION: RESPIRATORY EXAMINATION: ABDOMINAL EXAMINATION: EXTREMITIES: SKIN: NEUROLOGICAL EXAMINATION: PSYCHIATRIC EXAMINATION: LABORATORY DATA: Please see below. IMAGING: PROGNOSIS: ACTIVITY: [As tolerated]. DIET: . DISCHARGE PLAN: DISPOSITION: Home, Self-Care. DISCHARGE INSTRUCTIONS: 1. . 2. . 3. . ITEMS TO FOLLOWUP ON ON OUTPATIENT: 1. . 2. . 3. . DISCHARGE CONDITION: [Stable]. TIME SPENT ON DISCHARGE: Greater than minutes. Vital Signs/I&Os Vital Signs Date Time Temp Pulse Resp B/P (MAP) Pulse Ox O2 Delivery O2 Flow Rate FiO2 07/21/16 11:51 97.0 67 18 136/95 (109) 97 Room Air I&O- Last 24 Hours up to 6 AM 07/21/16 06:00 Intake Total 2080 ml Balance 2080 ml Laboratory Data Labs 24H Laboratory Tests 2 07/21/16 06:55: Blood Urea Nitrogen 6L, Creatinine 0.70, Sodium Level 136, Potassium Level 4.4, Chloride Level 105, Carbon Dioxide Level 27, Anion Gap 4L, Glomerular Filtration Rate > 60.0, Calcium Level 8.9, Phosphorus Level 4.0, C-Reactive Protein, Quantitative 12.30H, Albumin 3.1L CBC/BMP Laboratory Tests 07/21/16 06:55 Red Blood Count 4.08, Mean Corpuscular Volume 87.4, Mean Corpuscular Hemoglobin 29.6, Mean Corpuscular Hemoglobin Concent 33.8, Red Cell Distribution Width 13.6 , Anion Gap 4 L Microbiology Microbiology 07/17/16 Blood Culture - Preliminary, Resulted No Growth after 72 hours. All specime... 07/17/16 MRSA Screen - Final, Complete 07/17/16 Gram Stain - Final, Complete 07/17/16 Wound Culture - Final, Complete Staphylococcus Aureus Discharge Medications Scheduled (Lisinopril/Hydrochlorothi 20-25 mg) 1 Tab Tab, 1 TAB PO DAILY, (Reported) Amlodipine Besylate (Norvasc) 10 Mg Tab, 10 MG PO DAILY, (Reported) Buspirone HCl (Buspirone HCl) 10 Mg Tab, 10 MG PO TID, (Reported) Doxycycline Hyclate (Doxycycline) 100 Mg Cap, 100 MG PO Q12H Fluoxetine HCl (Prozac) 20 Mg Cap, 40 MG PO DAILY, (Reported) Gabapentin (Gabapentin) 300 Mg Cap, 300 MG PO TID Ibuprofen (Ibuprofen) 600 Mg Tab, 600 MG PO Q8H Take 1 tablet 3 times a day for 3 days. Then take 1 tab q8 hours PRN pain/ fever. [place] Carbonate ([place] Carbonate) 300 Mg Cap, 300 MG PO BID, (Reported) Loratadine (Loratadine) 10 Mg Tab, 10 MG PO DAILY, (Reported) Scheduled PRN Acetaminophen/Hydrocodone ([place] 7.5-325 mg) 1 Tab Tab, 1 TAB PO Q4HP PRN for MODERATE/SEVERE PAIN (PS 5-10) Quetiapine Fumerate (Seroquel) 50 Mg Tab, 50 MG PO QHS PRN for SLEEP, (Reported) Allergies Coded Allergies: Codeine (Verified Allergy, Mild, itchness, 06/12/16) RADHA KRISHNAN OGME-1 Jul 21, 2016 22:41
== END 2016-07-21 12:50 | disposition home or self-care (01) | DRG 383 ==
LOC: M ED 07:13 → M ED INP 08:04 → M MS5PR 10:19
PROVIDERS: ADMIT General Practice; ATTEND General Practice
DX: L03.213 Periorbital cellulitis (principal); I10 Essential (primary) hypertension; Z79.899 Other long term (current) drug therapy; Z88.5 Allergy status to narcotic agent; F31.9 Bipolar disorder, unspecified; F41.9 Anxiety disorder, unspecified

== ENCOUNTER → 2016-07-29 | Outpatient (REF) | payer OTHER ==
[~2016-07-29] MED LIST changes: +ADVI200T PO; +DOXY-278 PO; +IBUP600T26 PO; +LISI20TA3 PO; +LORA10TA2 PO; +NORC7.5T PO
== END ==
LOC: M SFHCLERA 10:47
PROVIDERS: ATTEND Family Medicine
DX: L03.213 Periorbital cellulitis (principal)

== ENCOUNTER 2018-03-04 04:57 | Inpatient (IN) | payer OTHER ==
[~2018-03-04] VITALS: Ht 165.1 cm; Wt 109.8 kg
[~2018-03-04 04:57] MED LIST changes: +ADDE1TAB14 PO; -ADDE5TAB5 PO; -DOXY-278 PO; +DOXY-350 PO; +GABA-1171 PO; -GABA-279 PO; -GABA-282 PO; +GABA-843 PO; +IBUP-1022 PO; -IBUP600T26 PO; -LORA10TA2 PO; +LORA10TA3 PO; -NORC7.5T PO; +NORC7.5T35 PO; +PENI500T PO; -PENI50TA PO
[2018-03-04] MEDS ORDERED: diphenhydrAMINE INJ 50MG/ML VIAL (J1200) IV STA (05:08)
[2018-03-04] MEDS ORDERED: dexameTHASONE 20 MG/5 ML VIAL (J1100) IV ONE ×2 (05:15→22:45)
[2018-03-04] MEDS ORDERED: CEFUROXIME SODIUM 1.5 GM in D5W MINI-BAG PLUS 50 ML IV ONE (05:15)
[2018-03-04 05:36] LABS: BASO # 0.1 10^3/uL (0.0-0.2); BASO % 0.4 % (0.0-1.0); EOS % 0.1 % (0.0-3.0); HEMATOCRIT 41.8 % (36.0-47.0); HEMOGLOBIN 14.3 g/dl (12.0-15.5); LYMPH # 1.8 10^3/uL (1.5-4.5); LYMPH % 9.7 % (24.0-44.0); MEAN CORPUSCULAR HEMOGLOBIN 29.7 pg (27.0-33.0); MEAN CORPUSCULAR HGB CONC 34.2 g/dl (32.0-36.5); MEAN CORPUSCULAR VOLUME 86.7 fl (80.0-96.0); MONO # 1.5 10^3/uL (0.0-0.8); MONO % 8.2 % (0.0-5.0); NEUTROPHILS # 15.1 10^3/uL (1.8-7.7); NEUTROPHILS % 81.1 % (36.0-66.0); PLATELET COUNT, AUTOMATED 290 10^3/uL (150-450); RED BLOOD COUNT 4.82 10^6/uL (4.00-5.40); WHITE BLOOD COUNT 18.6 10^3/uL (4.0-10.0)
[2018-03-04 06:02] LABS: BLOOD UREA NITROGEN 4 MG/DL (7-18); CALCIUM LEVEL 8.8 MG/DL (8.5-10.1); CARBON DIOXIDE LEVEL 23 MEQ/L (21-32); CHLORIDE LEVEL 105 MEQ/L (98-107); CREATININE FOR GFR 0.67 MG/DL (0.55-1.30); GLOMERULAR FILTRATION RATE > 60.0 (>58); GLUCOSE, FASTING 119 MG/DL (70-100); POTASSIUM SERUM 4.2 MEQ/L (3.5-5.1); SODIUM LEVEL 137 MEQ/L (136-145)
[2018-03-04] MEDS ORDERED: LISI20TA PO (07:21)
[2018-03-04] MEDS ORDERED: MORPHINE 4 MG/ML 1ML VIAL/SYRINGE (J2270) IV ONE ×2 (08:00→22:30)
[2018-03-04] MEDS ORDERED: FLUO10TA30 PO (08:02)
[2018-03-04] MEDS ORDERED: hydroCHLOROthiazide 12.5 MG CAPSULE PO ONE (08:15)
[2018-03-04] MEDS ORDERED: LISINOPRIL 20 MG TAB PO ONE ×2 (08:15→10:00)
[2018-03-04] MEDS ORDERED: ONDANSETRON 4MG/2ML VIAL (J2405) IV PRN (09:30)
[2018-03-04] MEDS ORDERED: ACETAMINOPHEN TAB 650MG DOSE (2X325MG) PO PRN (09:30)
[2018-03-04] MEDS: FLUoxetine 20 MG CAP PO SCH (11:11)
[2018-03-04] MEDS: LORATADINE 10 MG TAB PO SCH (11:11)
[2018-03-04] MEDS: NS 1,000 ML IV SCH ×2 (11:12→20:03)
[2018-03-04] MEDS: PERCOCET 5MG/325MG TAB PO PRN ×2 (11:16→20:02)
[2018-03-04 13:30] VITALS: BP 171/107
[2018-03-04] MEDS: HEPARIN SOD (PORCINE) 5000 UNITS/ML VIAL SC SCH ×2 (14:08→22:23)
[2018-03-04] MEDS: **hydrALAZINE HCL** 25 MG TAB PO SCH ×2 (14:08→22:23)
[2018-03-04] MEDS: CEFTAROLINE FOSAMIL 600 MG in D5W MINI-BAG PLUS 50 ML IV SCH ×2 (14:09→23:14)
[2018-03-04] MEDS: ACYCLOVIR 200 MG CAPSULE PO SCH ×2 (17:35→23:14)
[2018-03-04] MEDS: amLODIPine 5 MG TAB PO SCH (17:37)
[2018-03-04 17:50] VITALS: BP 182/103
[2018-03-04] MEDS ORDERED: **hydrALAZINE HCL** 25 MG TAB PO ONE (21:00)
[2018-03-04 22:00] VITALS: BP 171/101
[2018-03-04 22:07] VITALS: BP 176/95
[2018-03-05 00:20] VITALS: BP 156/86
[2018-03-05] MEDS: HEPARIN SOD (PORCINE) 5000 UNITS/ML VIAL SC SCH ×3 (05:12→21:00)
[2018-03-05] MEDS: **hydrALAZINE HCL** 25 MG TAB PO SCH ×3 (05:12→22:00)
[2018-03-05 06:00] VITALS: BP 153/72
[2018-03-05 06:06] LABS: HEMATOCRIT 43.1 % (36.0-47.0); HEMOGLOBIN 14.5 g/dl (12.0-15.5); MEAN CORPUSCULAR HEMOGLOBIN 29.4 pg (27.0-33.0); MEAN CORPUSCULAR HGB CONC 33.6 g/dl (32.0-36.5); MEAN CORPUSCULAR VOLUME 87.2 fl (80.0-96.0); PLATELET COUNT, AUTOMATED 347 10^3/uL (150-450); RED BLOOD COUNT 4.94 10^6/uL (4.00-5.40); WHITE BLOOD COUNT 19.3 10^3/uL (4.0-10.0)
[2018-03-05 06:28] LABS: BLOOD UREA NITROGEN 9 MG/DL (7-18); CALCIUM LEVEL 9.1 MG/DL (8.5-10.1); CARBON DIOXIDE LEVEL 21 MEQ/L (21-32); CHLORIDE LEVEL 104 MEQ/L (98-107); CREATININE FOR GFR 0.71 MG/DL (0.55-1.30); GLOMERULAR FILTRATION RATE > 60.0 (>58); GLUCOSE, FASTING 149 MG/DL (70-100); MAGNESIUM LEVEL 2.3 MG/DL (1.8-2.4); POTASSIUM SERUM 3.6 MEQ/L (3.5-5.1); SODIUM LEVEL 136 MEQ/L (136-145)
--- NOTE | 2018-03-05 07:55 | HPE ---
DATE OF ADMISSION: 03/04/2018 PRIMARY CARE PROVIDER: [facility] HISTORY OF PRESENT ILLNESS: The patient is a 47-year-old female with a past medical history significant for anxiety, bipolar, attention deficit hyperactivity disorder (ADHD, methicillin-resistant Staphylococcus aureus (MRSA) infection, history of genital herpes, history of marijuana use, history of IV drug use, and hepatitis C who presented to [facility] on 03/04/2018 with worsening lip swelling. The patient stated there seemed like a pimple-like lesion located just below the left lateral nostril three days ago. She tried to put heat on. Then the pimple-like nodule popped and pus was drained out. The patient tried to put on some lotion of which she does not remember the name and the swelling and erythema started to spread to her upper lip. The patient has had a fever in the last 24 hours. The patient also noted to have a possible blister-like lesion of the upper lip. She denies any associated symptoms. PAST MEDICAL HISTORY: 1. Hypertension. 2. Anxiety. 3. Depression. 4. Bipolar disorder. 5. ADHD. 6. History of MRSA infections. 7. History of hepatitis C. 8. History of IV drug use. 9. Marijuana use. PAST SURGICAL HISTORY: 1. in 1993. 2. Right shoulder tumor removal at age of 17. 3. Right foot surgery. 4. Tubal ligation. SOCIAL HISTORY: The patient smoked a 1/2 pack daily for three years and quit approximately a year ago. The patient drinks alcohol on average twice a week. The patient continues to use marijuana. REVIEW OF SYSTEMS: GENERAL: Positive fever in the last 24 hours. HEENT: Ruptured lesion below the left nostril with purulent discharge with worsening erythema slowly of the upper lip in the last three days. CARDIOVASCULAR: No chest pain. No palpitations. RESPIRATORY: No shortness of breath. No cough. No sputum production. GI: No nausea. No vomiting. No abdominal pains. MUSCULOSKELETAL: Denies any other joint pain or muscle pain. PHYSICAL EXAMINATION: VITAL SIGNS: Temperature 96.7, pulse 100, respirations 18, blood pressure 167/97, pulse oximetry 96% in room air. GENERAL: Mild distress. Alert, awake and oriented. HEENT: Positive erythema and swelling of the upper lip. There is a dry lesion site just below the left nostril. No active drainage or bleeding noted. Discomfort to touch of the upper lip. CARDIOVASCULAR: Positive S1, S2. Regular rate. LUNGS: Clear to auscultation bilaterally. ABDOMEN: Soft. Nontender. EXTREMITIES: No edema. NEUROLOGIC: Sensation to fine touch grossly intact. Muscle strength 5/5. LABORATORY DATA: WBC 18.6, hemoglobin 14.2, hematocrit 41.8 and platelet count 290. ESR 23. Sodium 137, potassium 4.2, chloride 105, carbon dioxide 23, BUN 4, creatinine 0.67, GFR greater than 60, fasting glucose 119, calcium 8.8, C-reactive protein 15.2. MICROBIOLOGY: Blood cultures pending. ASSESSMENT AND PLAN: 1. Left facial cellulitis. The patient will be admitted on medical-surgical floor. The patient has history of MRSA and patient also has history of the right eye preseptal cellulitis. The patient also has history of herpes infection. Wound culture ordered. Start empiric antibiotics. Will also check herpes simplex. Empirically start acyclovir. 2. Hypertensive urgency. Pain may play a large portion of patient's elevated blood pressure. The patient is currently on lisinopril. The patient also had hydralazine. Supplement with Norvasc. 3. Psychiatric condition with anxiety, depression, ADHD and bipolar. Continue Prozac. 4. History of hepatitis C. Follow with hepatitis panel. The patient has history of IV drug use. HIV screening test. 5. Deep vein thrombosis (DVT) prophylaxis. The patient is on heparin.
[2018-03-05] MEDS: ACYCLOVIR 200 MG CAPSULE PO SCH ×3 (08:48→23:42)
[2018-03-05] MEDS: LORATADINE 10 MG TAB PO SCH (08:48)
[2018-03-05] MEDS: amLODIPine 5 MG TAB PO SCH (08:49)
[2018-03-05] MEDS: LISINOPRIL 40 MG TAB PO SCH (08:49)
[2018-03-05] MEDS: FLUoxetine 20 MG CAP PO SCH (08:49)
[2018-03-05] MEDS: PERCOCET 5MG/325MG TAB PO PRN ×3 (08:50→22:18)
[2018-03-05] MEDS ORDERED: INFLUENZA QUADRIVALENT PF VACCINE 0.5ML SYRINGE (90686) IM ONE (09:00)
[2018-03-05 11:27] VITALS: BP 141/88
[2018-03-05] MEDS: CEFTAROLINE FOSAMIL 600 MG in D5W MINI-BAG PLUS 50 ML IV SCH ×2 (11:44→23:42)
[2018-03-05] MEDS ORDERED: MORPHINE 4 MG/ML 1ML VIAL/SYRINGE (J2270) IV ONE (11:45)
[2018-03-05 14:00] VITALS: BP 131/74
[2018-03-05 22:00] VITALS: BP 138/59
[2018-03-06] MEDS: PERCOCET 5MG/325MG TAB PO PRN ×3 (05:11→21:58)
[2018-03-06] MEDS: HEPARIN SOD (PORCINE) 5000 UNITS/ML VIAL SC SCH ×3 (05:13→21:58)
[2018-03-06] MEDS: **hydrALAZINE HCL** 25 MG TAB PO SCH ×3 (05:14→21:52)
[2018-03-06 06:00] VITALS: BP 140/88
[2018-03-06 06:15] LABS: HEMATOCRIT 44.8 % (36.0-47.0); MEAN CORPUSCULAR HEMOGLOBIN 29.6 pg (27.0-33.0); MEAN CORPUSCULAR HGB CONC 33.5 g/dl (32.0-36.5); MEAN CORPUSCULAR VOLUME 88.4 fl (80.0-96.0); PLATELET COUNT, AUTOMATED 399 10^3/uL (150-450); RED BLOOD COUNT 5.07 10^6/uL (4.00-5.40); WHITE BLOOD COUNT 11.4 10^3/uL (4.0-10.0)
[2018-03-06 06:48] LABS: BLOOD UREA NITROGEN 14 MG/DL (7-18); CALCIUM LEVEL 8.8 MG/DL (8.5-10.1); CARBON DIOXIDE LEVEL 23 MEQ/L (21-32); CHLORIDE LEVEL 106 MEQ/L (98-107); CREATININE FOR GFR 0.79 MG/DL (0.55-1.30); GLOMERULAR FILTRATION RATE > 60.0 (>58); GLUCOSE, FASTING 101 MG/DL (70-100); MAGNESIUM LEVEL 2.3 MG/DL (1.8-2.4); POTASSIUM SERUM 3.6 MEQ/L (3.5-5.1); SODIUM LEVEL 136 MEQ/L (136-145)
[2018-03-06] MEDS: ACYCLOVIR 200 MG CAPSULE PO SCH ×3 (08:40→23:42)
[2018-03-06] MEDS: LISINOPRIL 40 MG TAB PO SCH (08:41)
[2018-03-06] MEDS: FLUoxetine 20 MG CAP PO SCH (08:41)
[2018-03-06] MEDS: LORATADINE 10 MG TAB PO SCH (08:41)
[2018-03-06] MEDS: amLODIPine 5 MG TAB PO SCH (08:41)
--- NOTE | 2018-03-06 10:34 | IPN ---
DATE OF SERVICE: 03/05/2018 SUBJECTIVE: The patient is seen and examined in the room today. The patient is noted to have increase pustule drainage from the lesion located below the left lower nostril. When she pushes on the upper lip, it will cause drainage through the lesion site. The patient also noted a wound culture obtained. The patient also noted to have increased anxieties. According to the patient, the patient has been smoking marijuana at least 2-3 times on the daily basis. Usually, the patient uses marijuana to control her anxiety. She is more calm and pleasant. Ever since admission, the patient noted to have increased anxiety, and the patient has tried Xanax in the past, and she does not want to get in the habit of overusing it. Denied any fever or chills. OBJECTIVE: Vital signs: Temperature is 97.1, pulse 98, respiration 17, blood pressure is 153/72, pulse oximetry 97% on room air. General: Anxious, tearful, alert, awake, oriented. HEENT: There is circular open lesion located right below the left lower nostril site and with swelling and erythema radiating from the lesion site to the whole lip. still tender to palpation. Cardiovascular: Positive S1, S2. Regular rate. Lungs: Clear to auscultation bilaterally. Abdomen: Soft, nontender, nondistended. Extremities: No edema. LABORATORY DATA: WBC 19.3, hemoglobin 14.5, hematocrit 43.1, platelet count is 347. Sodium is 136, potassium 3.6, chloride 104, carbon dioxide 21, BUN is 9, creatinine 0.71, GFR greater than 60, fasting glucose 149, calcium 9.1, magnesium 2.3, C-reactive protein 16.7. ASSESSMENT AND PLAN: 1. Upper lip cellulitis. The patient's lesion site is noted to have a purulent drainage. Cultures obtained. The patient has a history of methicillin-resistant Staphylococcus aureus (MRSA) infection. Started the Teflaro. Waiting for the culture results. The patient also has a history of herpes infection. Will wait for the laboratory confirmation. Empirically, the patient started on the acyclovir. 2. Hypertensive urgency. The patient's and worsening anxieties may complicate the patient's blood pressure management. According to the patient,, the patient usually smokes marijuana several times a day to control her anxieties. The patient is frustrated with the whole situation and also her infection. Will use the pain medication with cautions, but we will try to provide some comfort to her discomfort. The patient is currently on Norvasc, hydralazine with holding parameters for the blood pressure. The patient is also on Lisinopril. Currently, the patient's blood pressure is in the satisfactory range. 3. Anxiety/depression, attention deficit hyperactivity disorder (ADHD), and bipolar disorder. Continue Prozac. 4. History of hepatitis C and history of intravenous (IV) drug use. Will follow with hepatitis pane. Followup with HIV test. 5. Marijuana usage. 6. Deep vein thrombosis (DVT) prophylaxis. The patient is on heparin.
[2018-03-06 12:07] LABS: HEPATITIS A ANTIBODY IGM NEGATIVE (NEGATIVE); HEPATITIS B CORE ANTIBODY IGM NEGATIVE (NEGATIVE); HEPATITIS B SURFACE ANTIGEN NEGATIVE (NEGATIVE); HIV 1&2 SCREEN CENTAUR NEGATIVE (NEGATIVE)
[2018-03-06 12:14] LABS: HEPATITIS C VIRUS ABY INDEX > 11.0 INDEX (<0.8)
[2018-03-06] MEDS: CEFTAROLINE FOSAMIL 600 MG in D5W MINI-BAG PLUS 50 ML IV SCH ×2 (12:27→23:42)
[2018-03-06 14:00] VITALS: BP 152/81
[2018-03-06] MEDS ORDERED: MORPHINE 4 MG/ML 1ML VIAL/SYRINGE (J2270) IV ONE (14:30)
--- NOTE | 2018-03-06 15:37 | IPNPDOC ---
Text Note Date of Service The patient was seen on 03/06/18. NOTE SUBJECTIVE: The patient is seen and examined in the room today. Patient states there has been intermittent purulent discharges from 2 lesion sites. She has new lesion site inside the upper lip. She feels there is no worsening of swelling. She feels she is getting better since admission. She denies fever or chill. She continues having increased anxiety. OBJECTIVE: Vital signs: Listed below. General: Anxious, alert, awake, oriented. HEENT: There is circular open lesion located right below the left lower nostril site and with swelling and erythema radiating from the lesion site to the whole lip. There is another draining site inside the mid-inner upper lip. Few blister lesions noted in mid upper lip. Cardiovascular: Positive S1, S2. Regular rate. Lungs: Clear to auscultation bilaterally. Abdomen: Soft, nontender, nondistended. Extremities: No edema. LABORATORY DATA: Listed below. ASSESSMENT AND PLAN: #. Upper lip cellulitis. - Purulent drainage noted from 2 lesions sites. (Left lower nostril site and mid inner upper lip). Preliminary wound culture demonstrate staph Aures. Sensitivity is pending. The patient has a history of methicillin-resistant Staphylococcus aureus (MRSA) infection. Started the Teflaro. The patient also has a history of herpes infection. Herpes testings are pending. Empirically, the patient started on the acyclovir. - WBC and CRP are improving. Clinically patient also demonstrates improvements. #. Hypertensive urgency. - The patient's facial pain and worsening anxieties may complicate the patient's blood pressure management. According to the patient, the patient usually smokes marijuana several times a day to control her anxieties. Will use the pain medication with cautions. The patient is on Norvasc, lisinopril and PRN hydralazine. Currently, the patient's blood pressure is in the satisfactory range. #. Anxiety/depression, attention deficit hyperactivity disorder (ADHD), and bipolar disorder. - Continue Prozac. #. History of hepatitis C and history of intravenous (IV) drug use. - hepatitis panel. Followup with HIV test. #. Marijuana usage. #. Deep vein thrombosis (DVT) prophylaxis. The patient is on heparin. VS,Fishbone, I+O VS, Fishbone, I+O Laboratory Tests 03/06/18 05:49 Red Blood Count 5.07, Mean Corpuscular Volume 88.4, Mean Corpuscular Hemoglobin 29.6, Mean Corpuscular Hemoglobin Concent 33.5, Red Cell Distribution Width 13.8, Calcium Level 8.8 Vital Signs Date Time Temp Pulse Resp B/P (MAP) Pulse Ox O2 Delivery O2 Flow Rate FiO2 03/06/18 14:48 18 03/06/18 14:00 140/88 03/06/18 08:41 75 03/06/18 06:00 97.1 95 Room Air I&O- Last 24 Hours up to 6 AM 03/06/18 06:00 Intake Total 1420 ml Output Total 0 ml Balance 1420 ml WENDY MILLS DO Mar 06, 2018 15:37
[2018-03-06 22:00] VITALS: BP 145/84
[2018-03-07] MEDS: HEPARIN SOD (PORCINE) 5000 UNITS/ML VIAL SC SCH (05:27)
[2018-03-07 06:00] VITALS: BP 143/89
[2018-03-07] MEDS: **hydrALAZINE HCL** 25 MG TAB PO SCH (06:12)
[2018-03-07 06:37] LABS: HEMATOCRIT 43.9 % (36.0-47.0); HEMOGLOBIN 14.6 g/dl (12.0-15.5); MEAN CORPUSCULAR HEMOGLOBIN 29.3 pg (27.0-33.0); MEAN CORPUSCULAR HGB CONC 33.3 g/dl (32.0-36.5); MEAN CORPUSCULAR VOLUME 88.2 fl (80.0-96.0); PLATELET COUNT, AUTOMATED 338 10^3/uL (150-450); RED BLOOD COUNT 4.98 10^6/uL (4.00-5.40); WHITE BLOOD COUNT 6.9 10^3/uL (4.0-10.0)
[2018-03-07 06:50] LABS: BLOOD UREA NITROGEN 12 MG/DL (7-18); C REACTIVE PROTEIN QUANTITATIV 2.98 MG/DL (0.00-0.30); CALCIUM LEVEL 8.8 MG/DL (8.5-10.1); CARBON DIOXIDE LEVEL 21 MEQ/L (21-32); CHLORIDE LEVEL 107 MEQ/L (98-107); CREATININE FOR GFR 0.66 MG/DL (0.55-1.30); GLOMERULAR FILTRATION RATE > 60.0 (>58); GLUCOSE, FASTING 100 MG/DL (70-100); MAGNESIUM LEVEL 2.1 MG/DL (1.8-2.4); SODIUM LEVEL 137 MEQ/L (136-145)
[2018-03-07] MEDS ORDERED: ACYC400T PO (07:50)
[2018-03-07] MEDS ORDERED: KEFL500C17 PO (07:50)
[2018-03-07] MEDS ORDERED: ACID1CAP5 PO (07:54)
[2018-03-07] MEDS ORDERED: DOXY-350 PO (07:54)
[2018-03-07] MEDS: LISINOPRIL 40 MG TAB PO SCH (08:02)
[2018-03-07] MEDS: FLUoxetine 20 MG CAP PO SCH (08:02)
[2018-03-07] MEDS: LORATADINE 10 MG TAB PO SCH (08:02)
[2018-03-07] MEDS: ACYCLOVIR 200 MG CAPSULE PO SCH (08:02)
[2018-03-07 08:03] VITALS: BP 143/89
[2018-03-07] MEDS: amLODIPine 5 MG TAB PO SCH (08:03)
--- NOTE | 2018-03-07 16:47 | DS.PDOC ---
Discharge Summary General Date of Admission Mar 04, 2018 at 09:21 Date of Discharge 03/07/18 Discharge Summary PROCEDURES PERFORMED DURING STAY: None. ADMITTING/DISCHARGE DIAGNOSES: Upper lip cellulitis Hypertensive urgency Anxiety/depression History of hepatitis C History of intravenous drug use Marijuana use Morbid obesity COMPLICATIONS/CHIEF COMPLAINT: Facial Cellulitis, Hypertensive Urgency. HISTORY OF PRESENT ILLNESS: . 47-year-old female with past medical history of hypertension, anxiety, de pression, bipolar disorder, history of MRSA infections, hepatitis C, IV drug abuse, marijuana use, and morbid obesity presented to the ER with a chief complaint of upper lip swelling. The patient stated that she had a pimple-like lesion located just below the left lateral nostril. She reported applying some lotion to the area. However, the lesion became more inflamed and she developed increased erythema across her upper lip. She did endorse fevers over the previous 24 hours as well. She denied any complaints of lightheadedness, dizziness, difficulty breathing, shortness of breath, cough, congestion, chest pain, palpitations, abdominal pain, or any nausea/vomiting/diarrhea. She was admitted to the hospitalist service for further evaluation and management. During hospitalization, the patient was started on Teflaro for empiric coverage of MRSA, and acyclovir for empiric coverage of herpes. The patient's upper lip swelling significantly improved with the aforementioned antibacterial and a ntiviral therapy. At this time, the patient states that she is feeling much better and is eager to return home. She reports that her swelling has almost completely resolved, and she no longer has the degree of significant swelling and purulent discharge that she had on admission. The patient's antibiotic therapy has been transitioned to by mouth based on susceptibilities. In addition, the patient's herpes simplex lab study is still pending, however we will treat her empirically for 2 more days to complete a course. I've advised patient to follow-up with her primary care physician within 7 days. Lastly, the patient has been consulted to return to the ER for any acute emergencies. DISCHARGE MEDICATIONS: Please see below. ALLERGIES: Please see below. PHYSICAL EXAMINATION ON DISCHARGE: VITAL SIGNS: Please see below. General: Alert, awake, oriented in no acute distress HEENT: The patient's upper lip swelling and erythema has significantly improved compared to the pictures from admission. She does have an open lesion inferior to the left nostril, and on the inner side of her lip in the midline position. However, there is no purulent discharge noted. No tenderness to palpation. Cardiovascular: Normal rate, normal S1, S2 Lungs: Clear to auscultation bilaterally. Abdomen: Soft, nontender, nondistended. Extremities: No edema. LABORATORY DATA: Please see below. PROGNOSIS: Fair ACTIVITY: As tolerated. DIET: Low-fat, low-cholesterol DISCHARGE PLAN: DISPOSITION: 01 Home, Self-Care. DISCHARGE INSTRUCTIONS: I've advised patient to follow-up with her primary care physician within 7 days. Lastly, the patient has been consulted to return to the ER for any acute emergencies. DISCHARGE CONDITION: Stable. TIME SPENT ON DISCHARGE: Greater than 30 minutes. Vital Signs/I&Os Vital Signs Date Time Temp Pulse Resp B/P (MAP) Pulse Ox O2 Delivery O2 Flow Rate FiO2 03/07/18 08:03 79 143/89 03/07/18 06:00 97.4 18 96 Room Air I&O- Last 24 Hours up to 6 AM 03/07/18 05:59 Intake Total 1820 ml Output Total 0 ml Balance 1820 ml Laboratory Data Labs 24H Laboratory Tests 2 03/07/18 05:54: Nucleated Red Blood Cells % (auto) 0.0, Anion Gap 9, Glomerular Filtration Rate > 60.0, Blood Urea Nitrogen 12, Creatinine 0.66, Sodium Level 137, Potassium Level 4.0, Chloride Level 107, Carbon Dioxide Level 21, Calcium Level 8.8, Magne sium Level 2.1, C-Reactive Protein, Quantitative 2.98H CBC/BMP Laboratory Tests 03/07/18 05:54 Red Blood Count 4.98, Mean Corpuscular Volume 88.2, Mean Corpuscular Hemoglobin 29.3, Mean Corpuscular Hemoglobin Concent 33.3, Red Cell Distribution Width 13.6, Calcium Level 8.8 Microbiology Microbiology 03/04/18 Blood Culture - Preliminary, Resulted No Growth after 72 hours. All specime... 03/04/18 MRSA Screen - Final, Complete 03/05/18 Wound Culture - Final, Complete Staphylococcus Aureus 03/04/18 Herpes Simplex Virus I (PCR), Ordered Pending 03/04/18 Herpes Simplex Virus II (PCR), Ordered Pending Discharge Medications Scheduled (Lisinopril/Hydrochlorothi 20-12.5 mg) 1 Tab Tab, 1 TAB PO DAILY, (Reported) (Fluoxetine HCl) 10 Mg Tab, 10 MG PO DAILY, (Reported) 30MG TOTAL Acyclovir (Acyclovir) 400 Mg Tab, 400 MG PO TID Cephalexin Monohydrate (Keflex) 500 Mg Cap, 500 MG PO QID Doxycycline Hyclate (Doxycycline) 100 Mg Cap, 1 CAP PO BID Fluoxetine HCl (Prozac) 20 Mg Cap, 20 MG PO DAILY, (Reported) 30MG TOTAL Lactobacillus (Acidophilus Lactobacilli) 1 Cap Cap, 1 CAP PO DAILY Loratadine (Loratadine) 10 Mg Tab, 10 MG PO DAILY, (Reported) Allergies Coded Allergies: Codeine (Verified Adverse Reaction, Mild, itchness, 03/04/18) RADHA RUCKER MD Mar 07, 2018 16:46
[2018-03-08 00:06] LABS: HSV IgM TYPES 1&2 1.22 Ratio (0.00-0.90)
== END 2018-03-07 11:32 | disposition home or self-care (01) | DRG 114 ==
LOC: M ED 04:57 → M ED INP 09:21 → M MSPAV 12:38
PROVIDERS: ADMIT Internal Medicine; ATTEND Internal Medicine
DX: K13.0 Diseases of lips (principal); E66.01 Morbid (severe) obesity due to excess calories; I16.0 Hypertensive urgency; F41.8 Other specified anxiety disorders; F31.9 Bipolar disorder, unspecified; F90.9 Attention-deficit hyperactivity disorder, unspecified type; F12.90 Cannabis use, unspecified, uncomplicated; B18.2 Chronic viral hepatitis C; Z79.899 Other long term (current) drug therapy; Z88.5 Allergy status to narcotic agent; I10 Essential (primary) hypertension

== ENCOUNTER → 2018-05-18 | Outpatient (REF) | payer OTHER ==
[~2018-05-18] MED LIST changes: -/LAMO10TA PO; -/LAMO15TA PO; -/QUET10TA PO; +ACID1CAP5 PO; +ACYC400T PO; +FLUO10TA30 PO; +KEFL500C17 PO; +LISI20TA PO; +NORC1TAB8 PO; -NORC7.5T35 PO; +SERO1TAB PO; -VICO5TAB16 PO; +VICO5TAB17 PO
[2018-05-18 14:27] LABS: BASO # 0.1 10^3/uL (0.0-0.2); BASO % 1.7 % (0.0-1.0); EOS # 0.1 10^3/uL (0.0-0.50); HEMATOCRIT 40.4 % (36.0-47.0); HEMOGLOBIN 13.4 g/dl (12.0-15.5); LYMPH # 2.5 10^3/uL (1.5-4.5); LYMPH % 42.9 % (24.0-44.0); MEAN CORPUSCULAR HEMOGLOBIN 29.2 pg (27.0-33.0); MEAN CORPUSCULAR HGB CONC 33.2 g/dl (32.0-36.5); MONO # 0.5 10^3/uL (0.0-0.8); MONO % 8.5 % (0.0-5.0); NEUTROPHILS # 2.6 10^3/uL (1.8-7.7); NEUTROPHILS % 44.7 % (36.0-66.0); PLATELET COUNT, AUTOMATED 310 10^3/uL (150-450); RED BLOOD COUNT 4.59 10^6/uL (4.00-5.40); WHITE BLOOD COUNT 5.9 10^3/uL (4.0-10.0)
[2018-05-18 14:39] LABS: ALBUMIN 4.1 GM/DL (3.2-5.2); ALT/SGPT 34 U/L (12-78); BILIRUBIN,TOTAL 0.5 MG/DL (0.2-1.0); BLOOD UREA NITROGEN 13 MG/DL (7-18); CARBON DIOXIDE LEVEL 26 MEQ/L (21-32); CHLORIDE LEVEL 102 MEQ/L (98-107); CHOLESTEROL LEVEL 245 MG/DL (<200); CHOLESTEROL RISK RATIO 5.444 (<5); CREATININE FOR GFR 0.66 MG/DL (0.55-1.30); GLOMERULAR FILTRATION RATE > 60.0 (>58); GLUCOSE, FASTING 94 MG/DL (70-100); HDL CHOLESTEROL 45 MG/DL (>40); LDL CHOLESTEROL 161 MG/DL (<100); NON-HDL-C 200 MG/DL; POTASSIUM SERUM 4.1 MEQ/L (3.5-5.1); SODIUM LEVEL 135 MEQ/L (136-145); THYROID STIMULATING HORMONE 0.676 uIU/ML (0.358-3.740); TOTAL PROTEIN 7.3 GM/DL (6.4-8.2); TRIGLYCERIDES LEVEL 193 MG/DL (<150)
[2018-05-18 14:40] LABS: FOLATE 19.6 NG/ML; VITAMIN B12 LEVEL 659 PG/ML
[2018-05-18 14:55] LABS: HEMOGLOBIN A1c 5.7 %
== END ==
LOC: M LAB REF 13:08
PROVIDERS: ATTEND Nurse Practitioner Family
DX: Z13.9 Encounter for screening, unspecified (principal); I10 Essential (primary) hypertension

== ENCOUNTER → 2019-03-05 | Outpatient (REF) | payer OTHER, MEDICAID ==
[~2019-03-05] MED LIST changes: +INDO-16 PO; -INDO25CA PO; -LISI20TA PO; +LISI20TA19 PO; +LISI20TA20 PO; -LISI20TA3 PO
[2019-03-05 11:42] LABS: BASO # 0.1 10^3/uL (0.0-0.2); BASO % 0.9 % (0.0-1.0); EOS # 0.2 10^3/uL (0.0-0.5); EOS % 1.7 % (0.0-3.0); HEMATOCRIT 45.2 % (36.0-47.0); HEMOGLOBIN 14.9 g/dl (12.0-15.5); LYMPH # 3.7 10^3/uL (1.5-5.0); MEAN CORPUSCULAR HEMOGLOBIN 28.4 pg (27.0-33.0); MEAN CORPUSCULAR VOLUME 86.3 fl (80.0-96.0); MONO # 0.7 10^3/uL (0.0-0.8); MONO % 7.8 % (0.0-5.0); NEUTROPHILS # 4.5 10^3/uL (1.5-8.5); NEUTROPHILS % 49.3 % (36.0-66.0); PLATELET COUNT, AUTOMATED 289 10^3/uL (150-450); RED BLOOD COUNT 5.24 10^6/uL (4.00-5.40); WHITE BLOOD COUNT 9.2 10^3/uL (4.0-10.0)
[2019-03-05 12:09] LABS: HEMOGLOBIN A1c 5.9 %
[2019-03-05 12:20] LABS: ALBUMIN 4.2 GM/DL (3.2-5.2); ALT/SGPT 23 U/L (12-78); BILIRUBIN,TOTAL 0.4 MG/DL (0.2-1.0); BLOOD UREA NITROGEN 9 MG/DL (7-18); CARBON DIOXIDE LEVEL 22 MEQ/L (21-32); CHLORIDE LEVEL 102 MEQ/L (98-107); CHOLESTEROL LEVEL 241 MG/DL (<200); CHOLESTEROL RISK RATIO 5.604 (<5); CREATININE FOR GFR 0.72 MG/DL (0.55-1.30); GLOMERULAR FILTRATION RATE > 60.0 (>58); GLUCOSE, FASTING 86 MG/DL (70-100); HDL CHOLESTEROL 43 MG/DL (>40); LDL CHOLESTEROL 136 MG/DL (<100); NON-HDL-C 198 MG/DL; POTASSIUM SERUM 4.2 MEQ/L (3.5-5.1); SODIUM LEVEL 134 MEQ/L (136-145); TOTAL 25(OH) VITAMIN D 20.2 NG/ML (30.0-100.0); TOTAL PROTEIN 8.1 GM/DL (6.4-8.2); TRIGLYCERIDES LEVEL 308 MG/DL (<150)
== END ==
LOC: M LAB REF 10:53
PROVIDERS: ATTEND Nurse Practitioner Family
DX: I10 Essential (primary) hypertension (principal); E78.5 Hyperlipidemia, unspecified; R73.03 Prediabetes; E55.9 Vitamin D deficiency, unspecified

== ENCOUNTER 2020-07-28 12:26 | Emergency (ER) | payer MEDICAID, OTHER ==
[~2020-07-28] VITALS: Ht 167.6 cm; Wt 119.9 kg
[~2020-07-28 12:26] MED LIST changes: +ACYC1TAB PO; -ACYC400T PO; +GABA-282 PO; -GABA-843 PO; +LISI10TA22 PO; -LISI10TA4 PO; -LISI20TA19 PO; +LISI20TA35 PO
[2020-07-28] MEDS ORDERED: diphenhydrAMINE 50MG/ML VIAL (J1200) IV ONE (12:40)
[2020-07-28] MEDS ORDERED: NS 1,000 ML IV ONE (12:40)
[2020-07-28] MEDS ORDERED: FAMOTIDINE INJ 20MG/2ML VIAL (S0028 PER 1) IVP ONE (12:40)
[2020-07-28] MEDS ORDERED: methylPREDNISolone 125MG 2ML VIAL IV ONE (12:40)
[2020-07-28] MEDS ORDERED: diphenhydrAMINE 50MG/ML VIAL (J1200) As Ordered ONE (12:43)
[2020-07-28] MEDS ORDERED: FAMOTIDINE/NS 20 MG/50 ML BAG (S0028) As Ordered ONE (12:43)
[2020-07-28] MEDS ORDERED: EPINEPHrine INJ 1 MG/ML 1ML AMP IM STA (12:44)
[2020-07-28] MEDS ORDERED: SUCCINYLCHOLINE INJ 200 MG/10 ML VIAL (J0330) IV ONE (12:55)
[2020-07-28] MEDS ORDERED: propofoL 1,000 MG in IV 1 EA IV SCH (12:55)
[2020-07-28] MEDS ORDERED: ETOMIDATE INJ 20MG/10ML VIAL IV ONE (12:55)
[2020-07-28 13:05] VITALS: O2SAT 98
--- NOTE | 2020-07-28 13:24 | REP ---
INDICATION: POST INTUBATION TUBE PLACEMENT. COMPARISON: 12/04/2014. TECHNIQUE: Single portable AP view of the chest was performed. FINDINGS: There is no acute infiltrate or pulmonary edema. Lungs are clear. The heart is not significantly enlarged. The mediastinal silhouette is unremarkable. The visualized osseous structures are intact. IMPRESSION: No acute pulmonary disease. <Electronically signed by Jordin Anthony > 07/28/20 [id number]
[2020-07-28] MEDS ORDERED: FLUO20CA22 OR (13:30)
[2020-07-28 15:45] VITALS: BP 168/102
[2020-07-28] MEDS ORDERED: EPIP0.3I2 IM (15:56)
[2020-07-28] MEDS ORDERED: PRED20TA PO (15:56)
[2020-07-28] MEDS ORDERED: DIPH50CA PO (15:56)
== END 2020-07-28 16:13 | disposition left against medical advice (07) ==
LOC: M ED 12:26
DX: T78.2XXA Anaphylactic shock, unspecified, initial encounter (principal); R22.0 Localized swelling, mass and lump, head; H05.229 Edema of unspecified orbit; Z53.9 Procedure and treatment not carried out, unspecified reason; I10 Essential (primary) hypertension; B19.20 Unspecified viral hepatitis C without hepatic coma; Z79.899 Other long term (current) drug therapy
CPT/HCPCS: 71045; 93041; 94760; 96361; 96372; 96374; 96375; 99284; J0171; J1200; J2930

== ENCOUNTER → 2022-02-03 | Outpatient (REF) ==
[~2022-02-03] MED LIST changes: +DIPH50CA PO; -DOXY-350 PO; +DOXY-444 PO; +EPIP0.3I2 IM; +FLUO20CA22 OR; -LATU40TA PO; +LATU40TA2 PO; -LISI20TA20 PO; +LISI20TA37 PO; +PRED20TA PO
== END ==
LOC: M LAB 09:54
PROVIDERS: ATTEND Nurse Practitioner Adult Health
DX: Z02.1 Encounter for pre-employment examination (principal)

== ENCOUNTER 2022-12-11 06:33 | Emergency (ER) | payer OTHER ==
[~2022-12-11] VITALS: Ht 167.6 cm; Wt 101.6 kg
[2022-12-11 08:57] LABS: RSV AMPLIFICATION NEGATIVE (NEGATIVE)
[2022-12-11 09:28] VITALS: BP 148/83; TEMP 98.5; O2SAT 97
[2022-12-11] MEDS ORDERED: MUCI600T31 PO (09:30)
[2022-12-11] MEDS ORDERED: BENZ200C70 PO (09:30)
== END 2022-12-11 09:40 | disposition home or self-care (01) ==
LOC: M ED 06:33
DX: J09.X2 Influenza due to identified novel influenza A virus with other respiratory manifestations (principal); I10 Essential (primary) hypertension; J45.909 Unspecified asthma, uncomplicated; F41.9 Anxiety disorder, unspecified; Z79.811 Long term (current) use of aromatase inhibitors; Z79.52 Long term (current) use of systemic steroids; Z79.899 Other long term (current) drug therapy

== ENCOUNTER 2023-12-21 04:50 | Inpatient (IN) | payer OTHER ==
[~2023-12-21] VITALS: Ht 167.6 cm; Wt 109.5 kg
[~2023-12-21 04:50] MED LIST changes: +BENZ200C70 PO; +DOXY-440 PO; -DOXY-444 PO; +FLUO-365 PO; -FLUO20CA22 OR; +GABA-1172 PO; -GABA-282 PO; -KLON1TAB PO; +KLON1TAB13 PO; +MUCI600T31 PO
[2023-12-21 06:15] LABS: BASO # 0.1 10^3/uL (0.0-0.2); BASO % 0.6 % (0.0-1.0); EOS # 0.1 10^3/uL (0.0-0.5); EOS % 0.8 % (0.0-3.0); HEMATOCRIT 37.2 % (36.0-47.0); HEMOGLOBIN 12.3 g/dl (12.0-15.5); LYMPH # 2.3 10^3/uL (1.5-5.0); LYMPH % 18.4 % (24.0-44.0); MEAN CORPUSCULAR HEMOGLOBIN 29.1 pg (27.0-33.0); MEAN CORPUSCULAR HGB CONC 33.1 g/dl (32.0-36.5); MEAN CORPUSCULAR VOLUME 88.2 fl (80.0-96.0); MONO # 0.8 10^3/uL (0.0-0.8); MONO % 6.4 % (2.0-8.0); NEUTROPHILS # 9.1 10^3/uL (1.5-8.5); NEUTROPHILS % 72.8 % (36.0-66.0); PLATELET COUNT, AUTOMATED 411 10^3/uL (150-450); RED BLOOD COUNT 4.22 10^6/uL (4.00-5.40); WHITE BLOOD COUNT 12.4 10^3/uL (4.0-10.0)
[2023-12-21 06:29] LABS: ERYTHROCYTE SEDIMENTATION RATE 82 mm/hr (0-30)
[2023-12-21 06:46] LABS: BLOOD UREA NITROGEN 9 MG/DL (9-23); CALCIUM LEVEL 9.4 MG/DL (8.5-10.1); CARBON DIOXIDE LEVEL 27 MMOL/L (20-31); CHLORIDE LEVEL 107 MMOL/L (98-107); CREATININE FOR GFR 0.64 MG/DL (0.55-1.30); GLOMERULAR FILTRATION RATE > 60.0 (>51); GLUCOSE, FASTING 112 MG/DL (60-100); POTASSIUM SERUM 4.2 MMOL/L (3.5-5.1); SODIUM LEVEL 140 MMOL/L (136-145)
[2023-12-21] MEDS: AMPICILLIN SOD/SULBACTAM SOD 1.5 GM in DEXTROSE 5% (D5W) ADV/MINI-BAG 50 ML IV ONE (07:02)
[2023-12-21] MEDS: ACETAMINOPHEN 325 MG TAB PO ONE (07:54)
[2023-12-21] MEDS: IBUPROFEN 600MG TAB PO ONE (07:55)
[2023-12-21] MEDS: MORPHINE 2 MG/ML 1ML VIAL IV ONE (08:33)
[2023-12-21] MEDS ORDERED: VANCOMYCIN HCL 500 MG in DEXTROSE 5% (D5W) MINI-BAG PLU 100 ML IV SCH (08:45)
[2023-12-21] MEDS ORDERED: FLUO-290 PO (09:23)
[2023-12-21] MEDS ORDERED: HOME MED LIST COMPLETE! XX SCH (09:30)
[2023-12-21 09:52] VITALS: BP 154/84; TEMP 97.9; O2SAT 97
[2023-12-21 10:46] LABS: HEMOGLOBIN A1c 5.4 % (4.0-6.0)
[2023-12-21] MEDS: ENOXAPARIN 40MG/0.4ML SYRINGE (J1650 PER 10MG) SC SCH (10:55)
[2023-12-21] MEDS: VANCOMYCIN 2,000 MG/400 ML IV BAG *LOAD IV ONE (10:55)
[2023-12-21 11:39] LABS: PROCALCITONIN <0.04 ng/ml
[2023-12-21 12:00] VITALS: BP 155/85; TEMP 97.2; O2SAT 96
[2023-12-21] MEDS: PIPERACILLIN/TAZOBACTAM SOD 4.5 GM in DEXTROSE 5% (D5W) ADV/MINI-BAG 50 ML IV SCH (12:54)
[2023-12-21] MEDS: MORPHINE 2 MG/ML 1ML VIAL IV PRN (12:54)
[2023-12-21] MEDS: VANCOMYCIN 1,000MG/200 ML IV BAG IV SCH (18:30)
[2023-12-21] MEDS ORDERED: AMPICILLIN SOD/SULBACTAM SOD 1.5 GM in DEXTROSE 5% (D5W) ADV/MINI-BAG 50 ML IV SCH (19:00)
[2023-12-21] MEDS: IBUPROFEN 600MG TAB PO PRN (19:21)
[2023-12-21 20:00] VITALS: BP 158/102; TEMP 98.2; O2SAT 95
[2023-12-21] MEDS: AMPICILLIN SOD/SULBACTAM SOD 1.5 GM in DEXTROSE 5% (D5W) ADV/MINI-BAG 50 ML IV SCH (21:46)
[2023-12-21] MEDS: RAMELTEON 8 MG TAB (ROZEREM) PO PRN (22:29)
[2023-12-21] MEDS: ACETAMINOPHEN 325 MG TAB PO PRN (22:29)
[2023-12-22 04:00] VITALS: BP 136/94; TEMP 97.3; O2SAT 96
[2023-12-22 05:13] LABS: BASO # 0.1 10^3/uL (0.0-0.2); BASO % 0.5 % (0.0-1.0); EOS # 0.1 10^3/uL (0.0-0.5); EOS % 0.5 % (0.0-3.0); HEMATOCRIT 35.6 % (36.0-47.0); HEMOGLOBIN 11.8 g/dl (12.0-15.5); LYMPH # 2.2 10^3/uL (1.5-5.0); LYMPH % 16.1 % (24.0-44.0); MEAN CORPUSCULAR HEMOGLOBIN 28.9 pg (27.0-33.0); MEAN CORPUSCULAR HGB CONC 33.1 g/dl (32.0-36.5); MEAN CORPUSCULAR VOLUME 87.3 fl (80.0-96.0); MONO % 7.4 % (2.0-8.0); NEUTROPHILS # 10.2 10^3/uL (1.5-8.5); NEUTROPHILS % 74.6 % (36.0-66.0); PLATELET COUNT, AUTOMATED 396 10^3/uL (150-450); RED BLOOD COUNT 4.08 10^6/uL (4.00-5.40); WHITE BLOOD COUNT 13.7 10^3/uL (4.0-10.0)
[2023-12-22 05:42] LABS: BLOOD UREA NITROGEN 5 MG/DL (9-23); CALCIUM LEVEL 9.3 MG/DL (8.5-10.1); CARBON DIOXIDE LEVEL 24 MMOL/L (20-31); CHLORIDE LEVEL 103 MMOL/L (98-107); CREATININE FOR GFR 0.56 MG/DL (0.55-1.30); GLOMERULAR FILTRATION RATE > 60.0 (>51); GLUCOSE, FASTING 152 MG/DL (60-100); SODIUM LEVEL 137 MMOL/L (136-145)
[2023-12-22] MEDS: hydroCHLOROthiazide 12.5 MG CAPSULE PO SCH (08:21)
[2023-12-22 12:00] VITALS: BP_SYST 131; BP_SYST 142; BP_DIAS 62; BP_DIAS 94; TEMP 97.9; TEMP 98.1; O2SAT 97; O2SAT 98
[2023-12-22 20:00] VITALS: BP 134/91; TEMP 97.5; O2SAT 95
[2023-12-23 04:00] VITALS: BP 139/89; TEMP 96.5; O2SAT 97
[2023-12-23 05:54] LABS: BASO # 0.1 10^3/uL (0.0-0.2); BASO % 0.5 % (0.0-1.0); EOS # 0.1 10^3/uL (0.0-0.5); EOS % 0.7 % (0.0-3.0); HEMATOCRIT 38.3 % (36.0-47.0); HEMOGLOBIN 12.5 g/dl (12.0-15.5); LYMPH # 3.3 10^3/uL (1.5-5.0); LYMPH % 22.9 % (24.0-44.0); MEAN CORPUSCULAR HEMOGLOBIN 28.5 pg (27.0-33.0); MEAN CORPUSCULAR HGB CONC 32.6 g/dl (32.0-36.5); MEAN CORPUSCULAR VOLUME 87.4 fl (80.0-96.0); MONO # 0.9 10^3/uL (0.0-0.8); MONO % 6.5 % (2.0-8.0); NEUTROPHILS # 9.8 10^3/uL (1.5-8.5); NEUTROPHILS % 68.4 % (36.0-66.0); PLATELET COUNT, AUTOMATED 434 10^3/uL (150-450); RED BLOOD COUNT 4.38 10^6/uL (4.00-5.40); WHITE BLOOD COUNT 14.4 10^3/uL (4.0-10.0)
[2023-12-23 06:26] LABS: BLOOD UREA NITROGEN 9 MG/DL (9-23); CALCIUM LEVEL 9.6 MG/DL (8.5-10.1); CARBON DIOXIDE LEVEL 25 MMOL/L (20-31); CHLORIDE LEVEL 104 MMOL/L (98-107); CREATININE FOR GFR 0.55 MG/DL (0.55-1.30); GLOMERULAR FILTRATION RATE > 60.0 (>51); GLUCOSE, FASTING 155 MG/DL (60-100); POTASSIUM SERUM 4.2 MMOL/L (3.5-5.1); SODIUM LEVEL 135 MMOL/L (136-145)
[2023-12-23] MEDS ORDERED: HYALURONIDASE 15UNIT/ML 1ML SYRINGE (AMPHADASE) SC ONE (06:35)
[2023-12-23] MEDS: HYALURONIDASE 15 UNITS/ML 1ML *SC SC ONE (07:00)
[2023-12-23 10:19] VITALS: BP 139/92
[2023-12-23] MEDS ORDERED: AUGM500T34 PO (10:33)
[2023-12-23] MEDS ORDERED: IBUP-1022 PO (10:35)
[2023-12-23] MEDS ORDERED: IBUP-1114 PO (10:35)
[2023-12-23] MEDS ORDERED: DOXY-440 PO (10:35)
[2023-12-23 11:50] VITALS: BP 140/92; TEMP 98.1; O2SAT 97
== END 2023-12-23 13:20 | disposition home or self-care (01) | DRG 383 ==
LOC: M ED 04:50 → EEVIPCON 08:39 → M ED INP 08:39 → M MSPAV 09:15
PROVIDERS: ADMIT Internal Medicine; ATTEND Internal Medicine
DX: L03.211 Cellulitis of face (principal); I10 Essential (primary) hypertension; E78.5 Hyperlipidemia, unspecified; F31.9 Bipolar disorder, unspecified; F12.90 Cannabis use, unspecified, uncomplicated; B97.89 Other viral agents as the cause of diseases classified elsewhere; Z79.899 Other long term (current) drug therapy